=== PATIENT | female | born 1955 | race Caucasian/White ===

== ENCOUNTER → 2016-12-09 | Outpatient (CLI) | payer BC ==
--- NOTE | 2016-12-10 11:07 | MM ---
Reason for exam: screening (asymptomatic). Last mammogram was performed 1 year and 1 month ago. History: Patient is postmenopausal. Family history of breast cancer in daughter at age 37, breast cancer in mother at age 59, and breast cancer in maternal aunt at age 60. Cancelled Left Needle Localization of both breasts, March 19, 2007. Attempted Procedure of the left breast, March 19, 2007. Benign left mammotome panel of the left breast, September 04, 2006. Benign excisional biopsy of the right breast, 1982. Took hormonal contraceptives for 8 years. Physical Findings: A clinical breast exam by your physician is recommended on an annual basis and results should be correlated with mammographic findings. MG 3D Screening Mammo W/Cad Bilateral CC and MLO view(s) were taken. Prior study comparison: November 12, 2015, bilateral MG 3d screening mammo w/cad. November 08, 2014, bilateral MG screening mammo w CAD. The breast tissue is heterogeneously dense. This may lower the sensitivity of mammography. Finding: There is a typically benign 7 mm mass located 3 cm from the nipple in the 3 o'clock position consistent with cyst versus mass. There is a chronic nodularity bilaterally. New finding since November 12, 2015 and November 08, 2014. ASSESSMENT: Incomplete: need additional imaging evaluation, BI-RAD 0 RECOMMENDATION: Ultrasound of the right breast. [facility] will attempt to contact patient to return for ultrasound.
== END | disposition home or self-care (01) ==
LOC: RADMAMWWP 07:33
PROVIDERS: ATTEND Obstetrics & Gynecology
DX: Z12.31 Encounter for screening mammogram for malignant neoplasm of breast (principal); R92.2 Inconclusive mammogram
CPT/HCPCS: 77063; G0202

== ENCOUNTER → 2016-12-12 | Outpatient (CLI) | payer BC ==
--- NOTE | 2016-12-15 07:37 | USB ---
Reason for exam: additional evaluation requested from abnormal screening. History: Patient is postmenopausal. Family history of breast cancer in daughter at age 37, breast cancer in mother at age 59, and breast cancer in maternal aunt at age 60. Cancelled Left Needle Localization of both breasts, March 19, 2007. Attempted Procedure of the left breast, March 19, 2007. Benign left mammotome panel of the left breast, September 04, 2006. Benign excisional biopsy of the right breast, 1982. Took hormonal contraceptives for 8 years. Physical Findings: Nurse Summary: 11 o'clock and 3 o'clock at nipple (nurse kp). US Breast Workup Limited RT Right breast ultrasound demonstrates a 1.1 x 0.6 x 0.4cm cystic lesion at 11 o'clock, a 0.5 x 0.4 x 0.3cm cystic lesion at 11 o'clock, a 0.4 x 0.3 x 0.2cm cystic lesion at 11 o'clock, a 0.4 x 0.3 x 0.2cm cystic lesion at 1 o'clock and a 0.8 x 0.4 x 0.5cm cystic cluster at 3 o'clock. Stable chronic nodularity. These results were verbally communicated with the patient and result sheet given to the patient on 12/12/16. ASSESSMENT: Benign, BI-RAD 2 RECOMMENDATION: Return to routine screening mammogram schedule for both breasts.
== END | disposition home or self-care (01) ==
LOC: RADUSWWP 07:04
PROVIDERS: ATTEND Obstetrics & Gynecology
DX: R92.8 Other abnormal and inconclusive findings on diagnostic imaging of breast (principal)

== ENCOUNTER 2017-10-07 11:04 | Day surgery (SDC) | payer BC ==
[2017-10-05 09:58] VITALS: BMI 31.4
[~2017-10-07 11:04] MED LIST: LACTATED RINGERS 1,000 ML IV SCH; LIDOCAINE 1% 20 ML VIAL (10MG/ML) FOR IV START INTRADERMA PRN
[2017-10-07 12:16] VITALS: TEMP 97
[2017-10-07] MEDS ORDERED: LIDOCAINE 1% INJ 10MG/ML (20 ML MDV) ONE (12:47)
[2017-10-07] MEDS ORDERED: PROPOFOL 10 MG/ML 20 ML VIAL IV ONE (12:47)
--- NOTE | 2017-10-07 13:13 | P.PCN ---
Date of Procedure: 10/07/17 Procedure(s) Performed: BRIEF HISTORY: Patient is a 62-year-old pleasant white female, scheduled for an elective colonoscopy as a part of screening for colon cancer. She has family history of colon cancer diagnosed in her mother at age 40. PROCEDURE PERFORMED: Colonoscopy with snare polypectomy. PREOPERATIVE DIAGNOSIS: Screening for colon cancer/family history of colon cancer. IV sedation per Anesthesia. PROCEDURE: After informed consent was obtained, the patient, was brought into the endoscopy unit. IV sedation was administered by Anesthesia under continuous monitoring. Digital rectal examination was normal. Initially the Olympus CF- 160 flexible video colonoscope was then inserted in the rectum, gradually advanced into the cecum without any difficulty. Careful examination was performed as the scope was gradually being withdrawn. Ileocecal valve and the appendiceal orifice were visualized and appeared normal. Prep was excellent. Mucosa of the cecum, ascending colon, transverse colon, descending colon, sigmoid colon appeared normal. In the proximal rectum at 18 cm from the anal verge there was a 4-5 cm broad-based polyp that was removed by piecemeal snare polypectomy. 90% of the polyp was removed. At this time the base of the polyp was spread over 3-4 cm area and complete polypectomy could not be accomplished. Retroflexion was performed in the rectum and no lesions were seen. The patient tolerated the procedure well. IMPRESSION: 4 cm broad-based proximal rectal polyp status post piecemeal snare polypectomy and 90% of the polyp removed. Rest of the colon appeared normal RECOMMENDATIONS: Findings of this examination were discussed with the patient as well as her family. She will be seen in office in a week from now. Based on the biopsy results will plan on surgical consultation or a repeat flexible sigmoid endoscopic in 3-4 weeks for complete polypectomy.
[2017-10-07 13:23] VITALS: BP 132/80
[2017-10-07 13:42] VITALS: PULSE 56; RESP 16
== END 2017-10-07 13:54 | disposition home or self-care (01) ==
LOC: ORWHC2ENDO 11:04
PROVIDERS: ATTEND Internal Medicine Gastroenterology
DX: Z12.11 Encounter for screening for malignant neoplasm of colon (principal); C20 Malignant neoplasm of rectum; K21.9 Gastro-esophageal reflux disease without esophagitis; Z88.0 Allergy status to penicillin; Z88.5 Allergy status to narcotic agent; Z80.0 Family history of malignant neoplasm of digestive organs
CPT/HCPCS: 88305; 45385; J2001; J2704

== ENCOUNTER → 2017-10-16 | Outpatient (CLI) | payer BC ==
--- NOTE | 2017-10-16 12:01 | CT ---
EXAMINATION TYPE: CT abdomen pelvis w con DATE OF EXAM: 10/16/2017 COMPARISON: NONE HISTORY: Rectal sigmoid colon CA CT DLP: 1613.4 mGycm Automated exposure control for dose reduction was used. TECHNIQUE: Helical acquisition of images from the lung bases through the pelvis have been completed. CONTRAST: Performed with Oral Contrast and with IV Contrast, patient injected with 100 mL of Isovue 300. FINDINGS: There is a soft tissue mass present within the mesentery seen extending just deep to the re ctus muscle on the left on axial images 64 through 57 is somewhat ill-defined. Similar small mass pre sent just deep to the rectus muscle on the right on axial image 57 through 59 is noted. These masses measure only approximately 1 cm in thickness, possible small areas just deep to the rectus muscle on the right on axial image 50 with abnormal soft tissue present as on axial image 45 in the midline emmanuel p to the abdominal wall. LUNG BASES: No significant abnormality is appreciated. AORTA: No significant abnormality is appreciated. LIVER/GB: Patient is post cholecystectomy. No evident liver mass. Liver shows low attenuation possibl y due to hepatic steatosis.. PANCREAS: No significant abnormality is seen. SPLEEN: No significant abnormality is seen. ADRENALS: No significant abnormality is seen. KIDNEYS: No significant abnormality is seen. REPRODUCTIVE ORGANS: The uterus is thought to be enlarged and shows associated lobular contour and pa renchymal calcifications, the probable uterus measuring approximately 17 cm in AP dimension by 11 cm x 10 cm in dimension. Ovaries are not seen with certainty. BOWEL: Some thickening of the rectosigmoid colon is indeterminate. This may correspond to patient's history, underlying tumor.. FREE AIR: No Free Air visible. ASCITES: Small amount of ascites present about the liver. PELVIC ADENOPATHY: None visualized. RETROPERITONEAL ADENOPATHY: No Retroperitoneal Adenopathy visible. URINARY BLADDER: No significant abnormality is seen. OSSEOUS STRUCTURES: Degenerative disc disease noted in the lower lumbar spine. IMPRESSION: FINDINGS COMPATIBLE WITH PATIENT'S HISTORY OF RECTOSIGMOID CARCINOMA. FINDINGS SUSPICIOUS FOR METASTA TIC DISEASE, OMENTAL METASTASIS. Large fibroid uterus, additional findings above.
== END | disposition home or self-care (01) ==
LOC: RADCTMAIN 09:43
PROVIDERS: ATTEND Internal Medicine Gastroenterology
DX: C19 Malignant neoplasm of rectosigmoid junction (principal); D25.9 Leiomyoma of uterus, unspecified
CPT/HCPCS: 74177; Q9967

== ENCOUNTER → 2017-10-22 | Day surgery (SDC) | payer BC ==
[~2017-10-22] MED LIST changes: +HYDROcodone/APAP 5-325MG 1 EACH TAB PO PRN; -LACTATED RINGERS 1,000 ML IV SCH; -LIDOCAINE 1% 20 ML VIAL (10MG/ML) FOR IV START INTRADERMA PRN; +MORPHINE SULFATE 4 MG/ML SYRINGE IVP PRN
[2017-10-22 08:38] LABS: Mean Platelet Volume 7.9; Platelet Count 283 k/uL (150-450)
[2017-10-22 08:42] LABS: INR 1.1 (<1.2); Prothrombin Time 10.5 sec (9.0-12.0)
[2017-10-22 08:54] VITALS: RESP 18; TEMP 98
[2017-10-22 13:50] VITALS: BP 128/68; PULSE 68
--- NOTE | 2017-10-23 10:28 | CT ---
EXAMINATION TYPE: CT biopsy subcut tissue DATE OF EXAM: 10/22/2017 HISTORY: Omental caking with history of colon carcinoma/polypectomy, hysterectomy, and new complex pe lvic mass. COMPARISON: 10/16/2017 TECHNIQUE: Informed consent was obtained including the risks of bowel perforation and infection, olegario austin. Preprocedural timeout was performed. Sterile technique was utilized. The skin overlying a suitable path to the lesion was localized using CT and the overlying skin was prepped and draped. 15 cc of lidocaine was used for local anesthesia. Using CT guidance, access was gained to the lesion with a coaxial Temno biopsy device. 7 biopsies wer e performed in all. Following the procedure no immediate complications. Postprocedural imaging at 2 separate time points demonstrates only minimal air surrounding the biopsy site introduced by the lido beatrice and biopsy needle. The patient is discharged in stable condition. Hemostasis was achieved. IMPRESSION: SUCCESSFUL CT GUIDED OMENTAL BIOPSY. PATHOLOGY PENDING. THIS [facility]ED[facility].
== END ==
LOC: RADPROMAIN 07:40
PROVIDERS: ATTEND Internal Medicine Hematology & Oncology
DX: C20 Malignant neoplasm of rectum (principal)
CPT/HCPCS: 88305; 85049; 85610; 88342; 88341; 96375; 36415; 77012; 11100; J2270

== ENCOUNTER → 2017-12-10 | Outpatient (CLI) | payer BC ==
--- NOTE | 2017-12-10 11:34 | MM ---
Reason for exam: screening (asymptomatic). Last mammogram was performed 1 year ago. History: Patient is postmenopausal and history of other cancer. Family history of breast cancer in daughter at age 37, breast cancer in mother at age 59, and breast cancer in maternal aunt at age 60. Cancelled Left Needle Localization of both breasts, March 19, 2007. Attempted Procedure of the left breast, March 19, 2007. Benign left mammotome panel of the left breast, September 04, 2006. Benign excisional biopsy of the right breast, 1982. Took hormonal contraceptives for 8 years. Physical Findings: A clinical breast exam by your physician is recommended on an annual basis and results should be correlated with mammographic findings. MG 3D Screening Mammo W/Cad Bilateral CC and MLO view(s) were taken. Technologist: RT Reagan (R)(M) Prior study comparison: December 09, 2016, bilateral MG 3d screening mammo w/cad. November 12, 2015, bilateral MG 3d screening mammo w/cad. The breast tissue is heterogeneously dense. This may lower the sensitivity of mammography. Previous mammotome biopsy in the left breast. There is chronic nodularity bilaterally. New nodules bilaterally varying locations and sizes. ASSESSMENT: Incomplete: need additional imaging evaluation, BI-RAD 0 RECOMMENDATION: Ultrasound of both breasts.
--- NOTE | 2017-12-10 11:38 | USB ---
Reason for exam: additional evaluation requested from abnormal screening. History: Patient is postmenopausal and history of other cancer. Family history of breast cancer in daughter at age 37, breast cancer in mother at age 59, and breast cancer in maternal aunt at age 60. Cancelled Left Needle Localization of both breasts, March 19, 2007. Attempted Procedure of the left breast, March 19, 2007. Benign left mammotome panel of the left breast, September 04, 2006. Benign excisional biopsy of the right breast, 1982. Took hormonal contraceptives for 8 years. Physical Findings: Nurse Summary: bilateral nodularity, all soft, nodular, movable (nurse ts). US Breast Workup NADER Right complete breast ultrasound includes all four quadrants, the retroareolar region and axilla. Finding demonstrates a 0.7 x 0.3 x 0.5cm mixed lesion at 12 o'clock, a 0.7 x 0.4 x 0.7cm mixed lesion at 4 o'clock, a 0.5 x 0.3 x 0.6cm questionable node at 9 o'clock, a 0.7 x 0.7 x 0.8cm mixed lesion at 11:30 and a 0.9 x 0.6 x 0.4cm node at the axilla. Suspect overall fibrocystic change. Left complete breast ultrasound includes all four quadrants, the retroareolar region and axilla. Finding demonstrates a 0.7 x 0.4 x 0.7cm cystic lesion at 3 o'clock, a 0.7 x 0.5 x 0.7cm mixed lesion at 9 o'clock, a 0.7 x 0.5 x 0.05cm lipoma at 9 o'clock and a 1.0 x 0.5 x 1.1cm cystic lesion at the nipple. These results were verbally communicated with the patient and result sheet given to the patient on 12/10/17. ASSESSMENT: Probably benign, BI-RAD 3 RECOMMENDATION: Follow-up diagnostic mammogram of both breasts in 6 months.
== END | disposition home or self-care (01) ==
LOC: RADMAMWWP 07:04
PROVIDERS: ATTEND Obstetrics & Gynecology
DX: Z12.31 Encounter for screening mammogram for malignant neoplasm of breast (principal); R92.8 Other abnormal and inconclusive findings on diagnostic imaging of breast; Z80.3 Family history of malignant neoplasm of breast
CPT/HCPCS: 77063; 77067

== ENCOUNTER → 2017-12-11 | Day surgery (SDC) | payer BC ==
[2017-12-04 12:57] VITALS: BMI 27.9
[~2017-12-11] MED LIST changes: +DEXAMETHASONE SOD PHOSPHATE 10 MG/ML 1 ML VIAL IV ONE; +HEPARIN SODIUM,PORCINE 100 UNIT/ML 5 ML VIAL IV ONE; +HEPARIN SODIUM,PORCINE 5,000 UNIT/ML 1 ML VIAL SQ ONE; +KETAMINE 10 MG/ML 20 ML VIAL ONE; +LIDOCAINE 1% 20 ML VIAL (10MG/ML) FOR IV START INTRADERMA ONE; +LIDOCAINE 1% INJ 10MG/ML (20 ML MDV) SQ ONE; +MIDAZOLAM 2 MG/2 ML VIAL IV PRN; +MIDAZOLAM 2 MG/2 ML VIAL ONE; -MORPHINE SULFATE 4 MG/ML SYRINGE IVP PRN; +NALOXONE 0.4 MG/ML 1 ML VIAL IV PRN; +ONDANSETRON 4 MG/2 ML VIAL IVP ONE; +PROPOFOL 10 MG/ML 20 ML VIAL IV ONE; +Pre Op ABX Message 1 EACH MISC MISCELLANE ONE; +SCOPOLAMINE 1.5MG/72HR PATCH TRANSDERM ONE; +SODIUM CHLORIDE 0.9% 50 ML with ceFAZolin 2,000 MG IV ONE; +diphenhydrAMINE 50 MG/ML 1 ML VIAL ONE; +fentaNYL (PF) 50 MCG/ML 2 ML AMP IV PRN
[2017-12-11 06:50] VITALS: RESP 16; TEMP 96.4
[2017-12-11] MEDS: LACTATED RINGERS 1,000 ML IV SCH ×2 (07:11→07:42)
--- NOTE | 2017-12-11 07:40 | P.GSHP ---
History of Present Illness H&P Date: 12/11/17 Chief Complaint: Ovarian cancer Patient here today for Port-A-Cath placement. Recent diagnosis of ovarian and circumflex. Underwent recent surgical debulking and colectomy. She is to start chemotherapy this Thursday. Past Medical History Past Medical History: Cancer, GERD/Reflux, Pneumonia Additional Past Medical History / Comment(s): OSTEOPENIA, recent diagnosis of colon ca 10/2017, OVARIAN CANCER History of Any Multi-Drug Resistant Organisms: None Reported Past Surgical History: Adenoidectomy, Appendectomy, Bowel Resection, Cholecystectomy, Hysterectomy, Orthopedic Surgery, Tonsillectomy Additional Past Surgical History / Comment(s): D&C'S. RIGHT KNEE ARTHROSCOPY, colonoscopy. COLON RESECTION AND RIGHT AND LEFT OOPHERECTOMY ,OMENTUM REMOVED AND FALLOPIAN TUBES Past Anesthesia/Blood Transfusion Reactions: Postoperative Nausea & Vomiting ( PONV) Smoking Status: Never smoker - Past Family History Mother Family Medical History: Cancer Additional Family Medical History / Comment(s): age 37 - colon cancer, BREAST CANCER AGE 59 LIVER AND BRAIN CANCER Daughter(s) Family Medical History: Cancer Additional Family Medical History / Comment(s): BREAST CANCER Medications and Allergies Home Medications Medication Instructions Recorded Confirmed Type Cholecalciferol (Vitamin D3) 2,000 unit PO DAILY 10/05/17 12/11/17 History [Vitamin D3] ALPRAZolam [Xanax] 0.5 mg PO BID PRN 10/19/17 12/11/17 History Allergies Allergy/AdvReac Type Severity Reaction Status Date / Time etodolac Allergy Rash/Hives Verified 12/11/17 06:42 Penicillins Allergy Rash/Hives Verified 12/11/17 06:42 Surgical - Exam Vital Signs Temp Pulse Resp BP Pulse Ox 96.4 F L 74 16 133/75 98 12/11/17 06:49 12/11/17 06:49 12/11/17 06:49 12/11/17 06:49 12/11/17 06:49 Physical exam: General: Well-developed, well-nourished HEENT: Normocephalic, sclerae nonicteric Abdomen: Nontender, nondistended Extremities: No edema Neuro: Alert and oriented Assessment and Plan (1) Ovarian cancer Narrative/Plan: Will proceed with Port-A-Cath placement at this time. Risks of bleeding, infection, DVT, pneumothorax, catheter malfunction, anesthesia related complications were discussed. The patient understands and wishes to proceed. Current Visit: Yes Status: Acute Code(s): C56.9 - MALIGNANT NEOPLASM OF UNSPECIFIED OVARY SNOMED Code(s): 576722612
[2017-12-11 08:55] VITALS: PULSE 63
[2017-12-11 08:56] VITALS: BP 123/75
--- NOTE | 2017-12-11 08:57 | XR ---
EXAMINATION TYPE: XR chest 1V confirm line plcmt, FL guided central line placemt DATE OF EXAM: 12/11/2017 COMPARISON: NONE HISTORY: Status post Mediport insertion. TECHNIQUE: Single frontal view of the chest is obtained. FINDINGS: Right-sided Mediport has been placed with its distal tip terminating in the cavoatrial laurence ction, appropriately placed. There is no focal air space opacity, pleural effusion, or pneumothorax s een. The cardiac silhouette size is within normal limits. The osseous structures are intact. Annie cystectomy clips are noted within the right upper quadrant. Fluoroscopic guidance was provided during procedure performed by Dr. Dorantes. A total of 8 seconds of fluoroscopic time was utilized during the procedure and 1 spot images was acquired. IMPRESSION: Appropriately placed right-sided Mediport with no postprocedural pneumothorax.
--- NOTE | 2017-12-11 08:58 | P.OP ---
Date of Procedure: 12/11/17 Procedure(s) Performed: PREOPERATIVE DIAGNOSIS: Ovarian cancer POSTOPERATIVE DIAGNOSIS: Same PROCEDURE: Port-A-Cath placement SURGEON: Jayna EBL: Minimal ANESTHESIA: Sedation COMPLICATIONS: None OPERATIVE PROCEDURE: Patient was brought and placed on the operative table in the supine position. The patient was sedated per anesthesia that time. The chest and neck were prepped and draped in usual sterile fashion. The ultrasound probe was used to identify the location of the right internal jugular vein. The skin was localized with lidocaine. The Seldinger needle was advanced into the IJ under ultrasound guidance. The wire was advanced through the needle under fluoroscopic guidance into the superior vena cava. A port pocket was created in the right infraclavicular location. The catheter was tunneled from the wire entrance site to the port pocket. The port was then connected to the catheter. The dilator introducer was threaded over the guidewire. The guidewire and dilator were then removed. The catheter was advanced through the introducer and introducer was then removed. The tip was seen to be in the right atrial junction. Port was flushed with both saline and a Hep-Lock solution. There was good flow both in and out of the port. The port was sutured in underlying tissues using 3-0 silk sutures. The subcutaneous tissues were reapproximated using 3-0 Vicryl sutures and the skin at both locations using 4-0 Monocryl sutures. Steri-Strips and sterile dressings then applied. DISPOSITION: Stable to recovery room
== END | disposition home or self-care (01) ==
LOC: OR 06:10
PROVIDERS: ATTEND Surgery
DX: C56.1 Malignant neoplasm of right ovary (principal); Z90.722 Acquired absence of ovaries, bilateral; C20 Malignant neoplasm of rectum; Z90.49 Acquired absence of other specified parts of digestive tract; Z80.3 Family history of malignant neoplasm of breast; Z80.0 Family history of malignant neoplasm of digestive organs; K21.9 Gastro-esophageal reflux disease without esophagitis; M85.80 Other specified disorders of bone density and structure, unspecified site; Z88.6 Allergy status to analgesic agent; Z88.0 Allergy status to penicillin
CPT/HCPCS: 77001; 36561; 76937; C1788; J2250; J1200; J1644; J1642; J1100; J2405; J2001; J0690; J2704

== ENCOUNTER 2018-02-21 08:49 | Emergency (ER) | payer BC ==
[2018-02-21] MEDS ORDERED: SODIUM CHLORIDE 0.9% 500 ML 500 ML IV STA (09:15)
[2018-02-21] MEDS ORDERED: LIDOCAINE/EPINEPHR/TETRACAINE 5 ML BOTTLE TOPICAL ONE (09:17)
[2018-02-21] MEDS ORDERED: DIPH,PERTUS(ACELL)TETVAC-LF 0.5 ML VIAL IM ONE (09:30)
--- NOTE | 2018-02-21 09:40 | ED ---
General Adult HPI - General Chief complaint: Fall Stated complaint: Syncope Time Seen by Provider: 02/21/18 09:00 Source: patient, RN notes reviewed Mode of arrival: wheelchair Limitations: no limitations - History of Present Illness Initial comments: 62-year-old female presents emergency Department with chief complaint of syncopal episode. Patient is here with family. Patient states that she sat up quickly in her bed states that she normally has to get her bearings but states that she had to urinate so she immediately got up started walking when approximately 10 feet felt very dizzy told her family that she felt dizzy and then blacked out. Patient fell directly onto the tile floor. Patient struck her left knee, face. She did have some mild bleeding from the right nostril.. Patient also has a laceration to her right eyebrow region. She is unsure when her last tetanus was. Patient does complain of right-sided facial pain, right shoulder, left knee pain. Patient states that there was no loss of consciousness during the fall. Patient denies any neck, back pain no abdominal pain or any chest discomfort. Patient states that she does have ongoing weakness secondary to chemotherapy. She is on wrong for chemotherapy secondary to ovarian cancer. She did have a mass removed from her colon, uterine and ovarian region. Patient states her oncologist is Dr. Humphrey - Related Data Home Medications Medication Instructions Recorded Confirmed Cholecalciferol (Vitamin D3) 2,000 unit PO DAILY 10/05/17 12/11/17 [Vitamin D3] ALPRAZolam [Xanax] 0.5 mg PO BID PRN 10/19/17 12/11/17 Previous Rx's Medication Instructions Recorded Sulfamethox-Tmp 800-160Mg [Bactrim 1 each PO Q12HR #14 tab 02/21/18 Ds] Allergies Allergy/AdvReac Type Severity Reaction Status Date / Time etodolac Allergy Rash/Hives Verified 12/11/17 06:42 Penicillins Allergy Rash/Hives Verified 12/11/17 06:42 Review of Systems ROS Statement: Those systems with pertinent positive or pertinent negative responses have been documented in the HPI. ROS Other: All systems not noted in ROS Statement are negative. Past Medical History Past Medical History: Cancer Additional Past Medical History / Comment(s): OSTEOPENIA, recent diagnosis of colon ca 10/2017, Ovarian Cancer History of Any Multi-Drug Resistant Organisms: None Reported Past Surgical History: Adenoidectomy, Appendectomy, Cholecystectomy, Hysterectomy, Orthopedic Surgery, Tonsillectomy Additional Past Surgical History / Comment(s): D&C'S. RIGHT KNEE ARTHROSCOPY, colonoscopy. abdominal lesion being investigated with biopsy 10/2017, Mass removal, 10.7 Inches of Colon Removed 11/12/2017 Past Anesthesia/Blood Transfusion Reactions: Postoperative Nausea & Vomiting ( PONV) Past Psychological History: No Psychological Hx Reported Additional Psychological History / Comment(s): anxiety health related Smoking Status: Never smoker Past Alcohol Use History: None Reported Past Drug Use History: None Reported - Past Family History Mother Family Medical History: Cancer Additional Family Medical History / Comment(s): age 37 - colon cancer, BREAST CANCER AGE 59 LIVER AND BRAIN CANCER Daughter(s) Family Medical History: Cancer Additional Family Medical History / Comment(s): BREAST CANCER General Exam Limitations: no limitations General appearance: alert, in no apparent distress Head exam: Present: atraumatic, normocephalic, normal inspection Eye exam: Present: normal appearance, PERRL, EOMI, periorbital swelling (Mild right), periorbital tenderness (Mild to moderate right with 3 cm-laceration). Absent: scleral icterus, conjunctival injection ENT exam: Present: normal oropharynx, mucous membranes moist, TM's normal bilaterally, normal external ear exam. Absent: normal exam (Superficial laceration to the right lower, no obvious dentition injury patient does have tenderness with palpation of the right side of the mandible.) Neck exam: Present: normal inspection, full ROM. Absent: tenderness, meningismus, lymphadenopathy Respiratory exam: Present: normal lung sounds bilaterally. Absent: respiratory distress, wheezes, rales, rhonchi, stridor Cardiovascular Exam: Present: regular rate, normal rhythm, normal heart sounds. Absent: systolic murmur, diastolic murmur, rubs, gallop, clicks GI/Abdominal exam: Present: soft, normal bowel sounds. Absent: distended, tenderness, guarding, rebound, rigid Extremities exam: Present: other (Full range of motion to the right shoulder with moderate tenderness with palpation, neurovascular intact, left knee swollen and ecchymotic for range of motion but tender with palpation leg neurovascular intact extremity exam otherwise within normal limits.) Back exam: Present: full ROM. Absent: tenderness, paraspinal tenderness, vertebral tenderness Neurological exam: Present: alert, oriented X3, CN II-XII intact, reflexes normal, other. Absent: motor sensory deficit Skin exam: Present: warm, dry, intact, normal color. Absent: rash Course Vital Signs 02/21/18 02/21/18 02/21/18 08:50 09:22 09:30 Temperature 98.3 F Pulse Rate 87 Pulse Rate [ Sitting] Pulse Rate [ Supine] Respiratory 18 24 Rate Blood Pressure 117/82 167/101 Blood Pressure [Sitting] Blood Pressure [Supine] O2 Sat by Pulse 98 100 99 Oximetry 02/21/18 02/21/18 02/21/18 11:00 11:30 12:00 Temperature Pulse Rate 69 68 70 Pulse Rate [ Sitting] Pulse Rate [ Supine] Respiratory 12 18 18 Rate Blood Pressure 145/90 147/88 146/88 Blood Pressure [Sitting] Blood Pressure [Supine] O2 Sat by Pulse 100 100 Oximetry 02/21/18 02/21/18 12:30 12:50 Temperature Pulse Rate 75 Pulse Rate [ 100 Sitting] Pulse Rate [ 69 Supine] Respiratory 15 Rate Blood Pressure 141/98 Blood Pressure 108/76 [Sitting] Blood Pressure 146/81 [Supine] O2 Sat by Pulse 100 Oximetry - Reevaluation(s) Reevaluation #1: 02/21/18 09:40 Patient was offered pain medication and evaluation though she declined. Procedures - Laceration Laceration #1 Consent Obtained: verbal consent Time Out Performed: Yes Site: face Size (cm): 3 Description: linear Depth: simple, single layer Number of Sutures: 0 (exofin) Patient Tolerated Procedure: well, no complications Medical Decision Making - Medical Decision Making 62-year-old female presented to ER for syncopal episode. Patient had CT, x- rays and lab. Patient is found to have fracture of her right maxilla, right somatic arch. Otherwise imaging was reviewed in no acute abnormality's. Patient is mildly orthostatic. Patient was offered admission though she declines. Patient and family agree that she is stable for home. We discussed return parameters. Patient has follow-up tomorrow with her oncologist. Patient will increase her fluid intake will be discharged on antibiotics secondary to fractures and follow-up with Dr. Paulson as she seen in the past. - Lab Data Result diagrams: 02/21/18 10:43 02/21/18 10:43 Lab Results 02/21/18 02/21/18 02/21/18 Range/Units 10:43 10:43 10:43 WBC 3.9 (3.8-10.6) k/uL RBC 3.92 (3.80-5.40) m/uL Hgb 10.9 L (11.4-16.0) gm/dL Hct 34.6 (34.0-46.0) % MCV 88.3 (80.0-100.0) fL MCH 27.9 (25.0-35.0) pg MCHC 31.6 (31.0-37.0) g/dL RDW 16.6 H (11.5-15.5) % Plt Count 99 L (150-450) k/uL Neutrophils % 70 % Lymphocytes % 27 % Monocytes % 1 % Eosinophils % 0 % Basophils % 0 % Neutrophils # 2.8 (1.3-7.7) k/uL Lymphocytes # 1.1 (1.0-4.8) k/uL Monocytes # 0.1 (0-1.0) k/uL Eosinophils # 0.0 (0-0.7) k/uL Basophils # 0.0 (0-0.2) k/uL Anisocytosis Slight PT (9.0-12.0) sec INR (<1.2) APTT (22.0-30.0) sec Sodium 139 (137-145) mmol/L Potassium 4.3 (3.5-5.1) mmol/L Chloride 107 (98-107) mmol/L Carbon Dioxide 24 (22-30) mmol/L Anion Gap 8 mmol/L BUN 21 H (7-17) mg/dL Creatinine 0.51 L (0.52-1.04) mg/dL Est GFR (CKD-EPI)AfAm >90 (>60 ml/min/1.73 sqM) Est GFR (CKD-EPI)NonAf >90 (>60 ml/min/1.73 sqM) Glucose 123 H (74-99) mg/dL Calcium 9.5 (8.4-10.2) mg/dL Magnesium 1.7 (1.6-2.3) mg/dL Total Bilirubin 0.4 (0.2-1.3) mg/dL AST 27 (14-36) U/L ALT 32 (9-52) U/L Alkaline Phosphatase 68 (38-126) U/L Total Creatine Kinase 36 (30-135) U/L CK-MB (CK-2) 0.6 (0.0-2.4) ng/mL CK-MB (CK-2) Rel Index 1.7 Troponin I <0.012 (0.000-0.034) ng/mL Total Protein 7.0 (6.3-8.2) g/dL Albumin 3.7 (3.5-5.0) g/dL 02/21/18 Range/Units 10:43 WBC (3.8-10.6) k/uL RBC (3.80-5.40) m/uL Hgb (11.4-16.0) gm/dL Hct (34.0-46.0) % MCV (80.0-100.0) fL MCH (25.0-35.0) pg MCHC (31.0-37.0) g/dL RDW (11.5-15.5) % Plt Count (150-450) k/uL Neutrophils % % Lymphocytes % % Monocytes % % Eosinophils % % Basophils % % Neutrophils # (1.3-7.7) k/uL Lymphocytes # (1.0-4.8) k/uL Monocytes # (0-1.0) k/uL Eosinophils # (0-0.7) k/uL Basophils # (0-0.2) k/uL Anisocytosis PT 9.8 (9.0-12.0) sec INR 1.0 (<1.2) APTT 23.9 (22.0-30.0) sec Sodium (137-145) mmol/L Potassium (3.5-5.1) mmol/L Chloride (98-107) mmol/L Carbon Dioxide (22-30) mmol/L Anion Gap mmol/L BUN (7-17) mg/dL Creatinine (0.52-1.04) mg/dL Est GFR (CKD-EPI)AfAm (>60 ml/min/1.73 sqM) Est GFR (CKD-EPI)NonAf (>60 ml/min/1.73 sqM) Glucose (74-99) mg/dL Calcium (8.4-10.2) mg/dL Magnesium (1.6-2.3) mg/dL Total Bilirubin (0.2-1.3) mg/dL AST (14-36) U/L ALT (9-52) U/L Alkaline Phosphatase (38-126) U/L Total Creatine Kinase (30-135) U/L CK-MB (CK-2) (0.0-2.4) ng/mL CK-MB (CK-2) Rel Index Troponin I (0.000-0.034) ng/mL Total Protein (6.3-8.2) g/dL Albumin (3.5-5.0) g/dL Disposition Clinical Impression: Fall, Syncope, Maxillary fracture, Zygomatic arch fracture, Contusion of knee, right, Orthostatic dizziness Disposition: HOME SELF-CARE Condition: Stable Instructions: Syncope (ED) Additional Instructions: Please return to the Emergency Department if symptoms worsen or any other concerns. Prescriptions: Sulfamethox-Tmp 800-160Mg [Bactrim Ds] 1 each PO Q12HR #14 tab Is patient prescribed a controlled substance at d/c from ED?: No Referrals: Jake Gutierrez MD [Primary Care Provider] - 1-2 days Hay Rosas MD [STAFF PHYSICIAN] - 1-2 days Time of Disposition: 12:58
[2018-02-21] MEDS ORDERED: ETHYL CHLORIDE 103.5 ML SPRAY TOPICAL PRN (09:46)
--- NOTE | 2018-02-21 10:27 | XR ---
EXAMINATION TYPE: XR chest 1V DATE OF EXAM: 02/21/2018 HISTORY: Pain. REFERENCE: Previous study dated 12/11/2017. FINDINGS: There is a MediPort in place via a right internal jugular approach. Its tip is in the super ior vena cava at the cavoatrial junction. The lungs are clear. Pleural space are clear. The heart is not enlarged. IMPRESSION: NO ACUTE INTRATHORACIC ABNORMALITY.
--- NOTE | 2018-02-21 10:27 | XR ---
EXAMINATION TYPE: XR shoulder complete RT , 3 VIEWS DATE OF EXAM ORDERED: 02/21/2018 HISTORY: Pain. COMPARISON: None. FINDINGS: No fracture, dislocation or other acute osseous abnormality is seen. IMPRESSION: NO ACUTE OSSEOUS LESION.
--- NOTE | 2018-02-21 10:28 | XR ---
EXAMINATION TYPE: XR knee complete LT , 3 VIEWS DATE OF EXAM ORDERED: 02/21/2018 HISTORY: Pain. COMPARISON: None. FINDINGS: There is peaking of intercondylar spines. There is medial joint space loss. There is remod eling change in the medial compartment as well as the patellofemoral joint. There is a prominent knee joint effusion. No fracture is seen. IMPRESSION: 1. NO ACUTE OSSEOUS LESION. 2. OSTEOARTHRITIS. 3. LARGE KNEE JOINT EFFUSION.
--- NOTE | 2018-02-21 10:45 | CT ---
EXAMINATION TYPE: CT brain cspine wo con DATE OF EXAM: 02/21/2018 COMPARISON: NONE HISTORY: Syncope, open wound above Rt eye, jaw pain CT DLP: 1536.1 mGycm Automated exposure control for dose reduction was used. TECHNIQUE: CT scan of the head and cervical spine are performed without contrast. FINDINGS: BRAIN: Central structures are midline. There is no evidence of hydrocephalus. No acute focal lesion, mass effect or midline shift is seen. I do not see evidence of intracranial blood. There is a dressin g over the right eye. The orbit itself appears unremarkable. Visualized portions of the paranasal sinuses and mastoids are clear. The bony calvarium is intact. IMPRESSION: NO ACUTE INTRACRANIAL ABNORMALITY. CERVICAL SPINE: Visualized portions of the lungs are clear. There is effacement of the parapharyngeal soft tissues on the right. This may be overlying debris. Pa raspinal soft tissues are otherwise unremarkable. There is loss of the normal cervical lordosis. Alignment appears normal. Atlantoaxial relationships a re normal. There is disc space loss and hypertrophic spondylosis present at C5-6 and C6-7. There are uncovertebral joint changes at these levels as well. The facets are unremarkable. No definite protrus ion is seen. No fracture is seen. IMPRESSION: 1. NO ACUTE OSSEOUS LESION. 2. DEGENERATIVE CHANGE. 3. EFFACEMENT OF THE PARAPHARYNGEAL SOFT TISSUES ON THE RIGHT. DIRECT VISUALIZATION AT THIS AREA WOUL D BE SUGGESTED.
--- NOTE | 2018-02-21 10:51 | CT ---
EXAMINATION TYPE: CT facial bones wo con DATE OF EXAM: 02/21/2018 COMPARISON: None. HISTORY: Syncope, open wound above Rt eye, jaw pain CT DLP: 1536.1 mGycm Automated exposure control for dose reduction was used. TECHNIQUE: CT scan of the sinuses is performed without contrast, axial images are obtained, coronal r eformatted images are also reviewed. FINDINGS: There is a laceration over the right orbit. The orbit itself is unremarkable. The globe is intact. There are fractures of both the anterior and lateral valle of the right maxillary sinus. The sinuses filled with fluid, likely represent partially clotted blood. The medial wall appears intact. The infe rior wall of the orbit is also dilated. There is no muscular entrapment. There is a minimally displaced fracture of the right zygomatic arch. The left zygomatic arch is intac t. Both pterygoid plates are intact. No nasal fracture is identified. The mandible is intact. IMPRESSION: 1. VIOLATION OF BOTH THE LATERAL AND ANTERIOR VALLE OF THE MAXILLARY SINUS WELL THE INFERIOR WA LL OF THE ORBIT WITHOUT EVIDENCE OF ENTRAPMENT BUT WITH BLOOD WITHIN THE MAXILLARY SINUS. 2. MINIMALLY DISPLACED FRACTURE AND PORTION OF THE RIGHT ZYGOMATIC ARCH.
[2018-02-21 11:27] LABS: Anisocytosis Slight; Basophils % (A) 0 %; Eosinophils % (A) 0 %; HCT 34.6 % (34.0-46.0); HGB 10.9 gm/dL (11.4-16.0); Lymphocytes # (A) 1.1 k/uL (1.0-4.8); Lymphocytes % (A) 27 %; MCH 27.9 pg (25.0-35.0); MCHC 31.6 g/dL (31.0-37.0); MCV 88.3 fL (80.0-100.0); Mean Platelet Volume 7.5; Monocytes # (A) 0.1 k/uL (0-1.0); Monocytes % (A) 1 %; Neutrophils # (A) 2.8 k/uL (1.3-7.7); Neutrophils % (A) 70 %; RBC 3.92 m/uL (3.80-5.40); RDW 16.6 % (11.5-15.5); WBC 3.9 k/uL (3.8-10.6)
[2018-02-21 11:35] LABS: ALT 32 U/L (9-52); AST 27 U/L (14-36); Albumin 3.7 g/dL (3.5-5.0); Alkaline Phosphatase 68 U/L (38-126); Anion Gap 8 mmol/L; Blood Urea Nitrogen 21 mg/dL (7-17); Calcium 9.5 mg/dL (8.4-10.2); Carbon Dioxide 24 mmol/L (22-30); Chloride 107 mmol/L (98-107); Glucose 123 mg/dL (74-99); Magnesium 1.7 mg/dL (1.6-2.3); Potassium 4.3 mmol/L (3.5-5.1); Sodium 139 mmol/L (137-145); Total Bilirubin 0.4 mg/dL (0.2-1.3)
[2018-02-21 11:39] LABS: Partial Thromboplastin Time 23.9 sec (22.0-30.0); Prothrombin Time 9.8 sec (9.0-12.0)
[2018-02-21 11:51] LABS: Platelet Count 99 k/uL (150-450)
[2018-02-21 11:53] LABS: Creatine Kinase 36 U/L (30-135)
[2018-02-21 12:06] LABS: Creatine Kinase MB 0.6 ng/mL (0.0-2.4); Troponin I <0.012 ng/mL (0.000-0.034)
[2018-02-21] MEDS ORDERED: TOPICAL SKIN ADHESIVE 1 EACH AMP TOPICAL ONE (12:41)
[2018-02-21 13:37] VITALS: BP 135/89; PULSE 79; RESP 18; TEMP 98
== END 2018-02-21 14:21 | disposition home or self-care (01) ==
LOC: EC 08:49
DX: S02.40CA Maxillary fracture, right side, initial encounter for closed fracture (principal); S02.40EA Zygomatic fracture, right side, initial encounter for closed fracture; S80.01XA Contusion of right knee, initial encounter; S80.02XA Contusion of left knee, initial encounter; S01.111A Laceration without foreign body of right eyelid and periocular area, initial encounter; M25.511 Pain in right shoulder; Z85.43 Personal history of malignant neoplasm of ovary; Z85.038 Personal history of other malignant neoplasm of large intestine; Z88.6 Allergy status to analgesic agent; Z88.0 Allergy status to penicillin; R55 Syncope and collapse; Z23 Encounter for immunization; Z53.29 Procedure and treatment not carried out because of patient's decision for other reasons; W19.XXXA Unspecified fall, initial encounter; Y93.01 Activity, walking, marching and hiking; Y92.009 Unspecified place in unspecified non-institutional (private) residence as the place of occurrence of the external cause
CPT/HCPCS: 36415; 93005; 80053; 82550; 82553; 83735; 84484; 85025; 85610; 85730; 73030; 73562; 71045; 72125; 70486; 70450; 90715; 99284; 12013; 96374; 96361; 90471; J1642

== ENCOUNTER → 2018-05-17 | Outpatient (CLI) | payer BC ==
--- NOTE | 2018-05-17 16:18 | CT ---
EXAMINATION TYPE: CT ChestAbdPelvis w con DATE OF EXAM: 05/17/2018 COMPARISON: 10/16/2017 HISTORY: 62-year-old female follow up for ovarian and rectal cancer. TECHNIQUE: Contiguous axial scanning of the chest, abdomen, and pelvis performed with IV Contrast, pa tient injected with 100ml mL of Isovue 300. Delayed images through the kidneys were obtained. Coronal /sagittal reconstructions performed. CT DLP: 1878 mGycm Automated exposure control for dose reduction was used. FINDINGS: Chest: Right anterior chest wall injection port with catheter tip at the cavoatrial junction. Heart normal size without pericardial effusion. Aorta normal caliber with mild atherosclerotic arch calcifications and conventional arch vessel branc lary anatomy. Mildly enlarged caliber to the main right pulmonary artery 2.7 cm may reflect underlying pulmonary ar terial hypertension. No thoracic lymphadenopathy by CT size criteria. Evaluation of the lungs shows no consolidation or pleural effusion or suspicious nodules. ABDOMEN: Liver enlarged measuring 19.4 cm. No focal liver lesion seen. Portal venous system is patent. Cholecy stectomy clips. No biliary ductal dilatation. Adrenal glands, kidneys, spleen, and pancreas appear wi thin normal limits. No dilated small bowel, free fluid, or free air. There is some focal 7 mm nodularity along the right pericaval region, axial image 87 which is nonspecific. Scattered nonenlarged mesenteric lymph nodes i n the right lower quadrant just adjacent measure up to 5 mm. Post surgical changes along the midline anterior abdominal wall. There is some focal soft tissue thic kening just deep to the midline abdominal wall musculature, progressive axial image 96 and 97 which c ould represent postsurgical scar but can be reassessed at follow-up. A couple surgical clips noted along the left retroperitoneum. Moderate stool in the right side of the colon with oral contrast progressed to the proximal transvers e colon. No pericolonic inflammatory change. Pelvis: Bladder urine distended. Uterus resected in the interval. There is evidence of resection and re-anast omosis at the rectosigmoid junction. Phlebolith in the left side of the pelvis. No abnormal fluid col lection in the pelvis or pelvic lymphadenopathy seen. Bones: Degenerative changes at the hips. Stable sclerotic bone island posterior right iliac bone. Additional degenerative changes lower lumbar spine. No osseous destructive process. Endplate spondylosis mid to lower thoracic spine. IMPRESSION: 1. INTERVAL HYSTERECTOMY WELL RESECTION AND RE-ANASTOMOSIS AT THE RECTOSIGMOID JUNCTION. 2. LAPAROTOMY SCAR ALONG THE VENTRAL MIDLINE. THERE IS SOME FOCAL SOFT TISSUE THICKENING AT AND JUST DEEP TO THE ABDOMINAL WALL MUSCULATURE HERE THAT MOST LIKELY REPRESENTS SCAR TISSUE. ATTENTION ON FOL LOW-UP TO EXCLUDE SOFT TISSUE METASTATIC DEPOSIT (AXIAL IMAGE 96 AND 97). 3. SOME NONSPECIFIC 7 MM NODULARITY ALONG THE RIGHT PERICAVAL REGION IN THE RETROPERITONEUM (AXIAL IM AGE 85). AGAIN, ATTENTION ON FOLLOW-UP. 4. AT THIS TIME, THERE IS NO CONVINCING EVIDENCE FOR DEFINITE RECURRENT OR METASTATIC DISEASE.
== END | disposition home or self-care (01) ==
LOC: RADPROMAIN 11:55
PROVIDERS: ATTEND Internal Medicine Hematology & Oncology
DX: C56.1 Malignant neoplasm of right ovary (principal); C20 Malignant neoplasm of rectum; Z90.710 Acquired absence of both cervix and uterus
CPT/HCPCS: 71260; 74177; J1642; Q9967

== ENCOUNTER → 2018-06-14 | Outpatient (CLI) | payer BC ==
--- NOTE | 2018-06-14 08:50 | MM ---
Reason for exam: follow-up at short interval from prior study. Last mammogram was performed 6 months ago. History: Patient is postmenopausal, has history of ovarian cancer at age 62, has history of colon cancer at age 62, and history of other cancer. Family history of breast cancer in daughter at age 37, breast cancer in mother at age 59, and breast cancer in maternal aunt at age 60. Cancelled Left Needle Localization of both breasts, March 19, 2007. Attempted Procedure of the left breast, March 19, 2007. Benign left mammotome panel of the left breast, September 04, 2006. Benign excisional biopsy of the right breast, 1982. Took hormonal contraceptives for 8 years. Physical Findings: Nurse did not find any significant physical abnormalities on exam. MG 3D Diag Mammo W/Cad NADER Bilateral CC and MLO view(s) were taken. Prior study comparison: December 10, 2017, bilateral MG 3d screening mammo w/cad. December 09, 2016, bilateral MG 3d screening mammo w/cad. The breast tissue is heterogeneously dense. This may lower the sensitivity of mammography. There is chronic nodularity bilaterally. No significant new findings when compared with previous films. These results were verbally communicated with the patient and result sheet given to the patient on 06/14/18. ASSESSMENT: Benign, BI-RAD 2 RECOMMENDATION: Return to routine screening mammogram schedule for both breasts. Back on schedule.
== END | disposition home or self-care (01) ==
LOC: RADMAMWWP 07:05
PROVIDERS: ATTEND Obstetrics & Gynecology
DX: R92.8 Other abnormal and inconclusive findings on diagnostic imaging of breast (principal)
CPT/HCPCS: 77062; 77066

== ENCOUNTER → 2018-10-06 | Day surgery (SDC) | payer MEDICARE, BC ==
[2018-10-04 13:21] VITALS: BMI 31.4
[~2018-10-06] MED LIST changes: -DEXAMETHASONE SOD PHOSPHATE 10 MG/ML 1 ML VIAL IV ONE; -HEPARIN SODIUM,PORCINE 100 UNIT/ML 5 ML VIAL IV ONE; -HEPARIN SODIUM,PORCINE 5,000 UNIT/ML 1 ML VIAL SQ ONE; -HYDROcodone/APAP 5-325MG 1 EACH TAB PO PRN; -KETAMINE 10 MG/ML 20 ML VIAL ONE; +LACTATED RINGERS 1,000 ML IV SCH; -LIDOCAINE 1% INJ 10MG/ML (20 ML MDV) SQ ONE; -MIDAZOLAM 2 MG/2 ML VIAL IV PRN; -MIDAZOLAM 2 MG/2 ML VIAL ONE; -NALOXONE 0.4 MG/ML 1 ML VIAL IV PRN; -ONDANSETRON 4 MG/2 ML VIAL IVP ONE; -Pre Op ABX Message 1 EACH MISC MISCELLANE ONE; -SCOPOLAMINE 1.5MG/72HR PATCH TRANSDERM ONE; -SODIUM CHLORIDE 0.9% 50 ML with ceFAZolin 2,000 MG IV ONE; -diphenhydrAMINE 50 MG/ML 1 ML VIAL ONE; -fentaNYL (PF) 50 MCG/ML 2 ML AMP IV PRN
[2018-10-06 11:01] VITALS: RESP 16; TEMP 97.8
--- NOTE | 2018-10-06 12:37 | P.PCN ---
Date of Procedure: 10/06/18 Procedure(s) Performed: BRIEF HISTORY: Patient is a 63-year-old pleasant white female, scheduled for an elective colonoscopy as a part of surveillance of prior history of colon cancer diagnosed in October 2017. She was diagnosed with ovarian cancer the same time and his adjuvant chemotherapy followed by rectosigmoid colon resection at [facility]. She is scheduled for a surveillance colonoscopy today. PROCEDURE PERFORMED: Colonoscopy with biopsy. PREOPERATIVE DIAGNOSIS: History of colon cancer in October 2017. IV sedation per Anesthesia. PROCEDURE: After informed consent was obtained, the patient, was brought into the endoscopy unit. IV sedation was administered by Anesthesia under continuous monitoring. Digital rectal examination was normal. Initially the Olympus CF-160 flexible video colonoscope was then inserted in the rectum, gradually advanced into the cecum without any difficulty. Careful examination was performed as the scope was gradually being withdrawn. Ileocecal valve and the appendiceal orifice were visualized and appeared normal. Prep was excellent. Mucosa of the cecum, ascending colon, transverse colon appeared normal. In the descending colon there was a 1 mm probably was a polyp identified suggestive of a lipoma that was biopsied. Rest of the, descending colon, sigmoid colon, and rectum appeared normal. Anastomosis was located at 20 cm from the anal was there appeared normal. Retroflexion was performed in the rectum and no lesions were seen. The patient tolerated the procedure well. IMPRESSION: 1 cm submucosal lipoma noted in the distal descending colon status post biopsy Rest of the colon appeared normal. RECOMMENDATIONS: Findings of this examination were discussed with the patient as well as a family. She was advised to have a repeat surveillance colonoscopy in 2 years..
[2018-10-06 12:56] VITALS: BP 124/71; PULSE 82
== END | disposition home or self-care (01) ==
LOC: ORWHC2ENDO 10:01
PROVIDERS: ATTEND Internal Medicine Gastroenterology
DX: Z85.038 Personal history of other malignant neoplasm of large intestine (principal); D12.4 Benign neoplasm of descending colon; Z85.43 Personal history of malignant neoplasm of ovary; Z90.49 Acquired absence of other specified parts of digestive tract; Z92.21 Personal history of antineoplastic chemotherapy; Z88.0 Allergy status to penicillin; Z79.899 Other long term (current) drug therapy
CPT/HCPCS: 88305; 45380; J2704

== ENCOUNTER → 2018-11-10 | Outpatient (CLI) | payer MEDICARE, BC ==
[2018-11-10 10:45] LABS: African American GFR (CKD) >90 (>60 ml/min/1.73 sqM); Blood Urea Nitrogen 21 mg/dL (7-17)
--- NOTE | 2018-11-10 17:21 | CT ---
EXAMINATION TYPE: CT ChestAbdPelvis w con DATE OF EXAM: 11/10/2018 COMPARISON: CT chest abdomen and pelvis May 17, 2018 and older CTs HISTORY: Follow up ovarian cancer CT DLP: 1674.8 mGycm. Automated Exposure Control for Dose Reduction was Utilized. CONTRAST: CT scan of the thorax, abdomen and pelvis is performed with oral and with IV Contrast, patient inject ed with 100 mL of Isovue 300. FINDINGS: LUNGS: The lungs are grossly clear, there is no concerning parenchymal mass or nodule identified. T here is no pleural effusion or pneumothorax seen. The tracheobronchial tree is patent. MEDIASTINUM: There are no greater than 1 cm hilar or mediastinal lymph nodes. No cardiomegaly or pe ricardial effusion is seen. OTHER: Stable right internal jugular Mediport catheter. LIVER/GB: Cholecystectomy clips are redemonstrated. The liver size is stable and upper limits of norm al. Liver is low dense suggesting diffuse fatty infiltration. PANCREAS: No significant abnormality is seen. SPLEEN: No significant abnormality is seen. ADRENALS: No significant abnormality is seen. KIDNEYS: Symmetric cortical medullary uptake and excretion without hydronephrosis seen bilaterally. S ome surgical clips along course of left ureter axial image 85 are redemonstrated. BOWEL: Oral contrast reaches level of the splenic flexure. No suspicious small or large bowel dilatat ion. Surgical sutures sigmoid rectal junction axial image 107 are again seen. GENITAL ORGANS: Uterus is surgically absent. Occasional pelvic phlebolith is redemonstrated. LYMPH NODES: No new greater than 1cm abdominal or pelvic lymph nodes are appreciated. OSSEOUS STRUCTURES: Moderate to severe narrowing lumbosacral junction is redemonstrated. Mild multile lillie spurring is again seen. OTHER: Postsurgical change to the anterior abdominal wall is redemonstrated with vertical oriented sc ar. Slightly thickened soft tissue just right of midline axial image 86 shows no interval progression consistent with scar tissue. IMPRESSION: No definitive new mass or adenopathy identified to suggest malignant ovarian or metastati c recurrence.
== END | disposition home or self-care (01) ==
LOC: RADPROMAIN 09:37
PROVIDERS: ATTEND Internal Medicine Hematology & Oncology
DX: C56.1 Malignant neoplasm of right ovary (principal); Z03.89 Encounter for observation for other suspected diseases and conditions ruled out; Z88.0 Allergy status to penicillin; Z91.048 Other nonmedicinal substance allergy status
CPT/HCPCS: 82565; 84520; 71260; 74177; 36415; Q9967

== ENCOUNTER 2018-12-22 07:17 | Day surgery (SDC) | payer MEDICARE, BC ==
[2018-12-16 09:29] VITALS: BMI 30.5
[~2018-12-22 07:17] MED LIST changes: -LIDOCAINE 1% 20 ML VIAL (10MG/ML) FOR IV START INTRADERMA ONE; +LIDOCAINE 1% 20 ML VIAL (10MG/ML) FOR IV START INTRADERMA PRN; -PROPOFOL 10 MG/ML 20 ML VIAL IV ONE
[2018-12-22 07:49] VITALS: TEMP 97
[2018-12-22] MEDS ORDERED: DEXAMETHASONE SOD PHOSPHATE 10 MG/ML 1 ML VIAL IV ONE (07:57)
[2018-12-22] MEDS ORDERED: ONDANSETRON 4 MG/2 ML VIAL IVP ONE (07:57)
[2018-12-22] MEDS ORDERED: HEPARIN SODIUM,PORCINE 5,000 UNIT/ML 1 ML VIAL SQ ONE (07:58)
--- NOTE | 2018-12-22 08:05 | P.GSHP ---
History of Present Illness H&P Date: 12/22/18 Chief Complaint: ovarian ca Patient today for Port-A-Cath removal. Recently completed her chemotherapy for ovarian cancer. She has not had any issues with her port. Past Medical History Past Medical History: Cancer Additional Past Medical History / Comment(s): OSTEOPENIA, colon ca 10/2017, Ovarian Cancer History of Any Multi-Drug Resistant Organisms: None Reported Past Surgical History: Adenoidectomy, Appendectomy, Bowel Resection, Cholecystectomy, Hysterectomy, Orthopedic Surgery, Tonsillectomy Additional Past Surgical History / Comment(s): D&C'S. RIGHT KNEE ARTHROSCOPY, colonoscopy. Abd Mass removal, 10.7 Inches of Colon Removed 11/12/2017, PORT A CATH, OVARIES REMOVED Past Anesthesia/Blood Transfusion Reactions: Postoperative Nausea & Vomiting (PONV) Additional Past Anesthesia/Blood Transfusion Reaction / Comment(s): PONV "only with sodium pentothal" Smoking Status: Never smoker - Past Family History Mother Family Medical History: Cancer Additional Family Medical History / Comment(s): age 37 - colon cancer, BREAST CANCER AGE 59 LIVER AND BRAIN CANCER Daughter(s) Family Medical History: Cancer Additional Family Medical History / Comment(s): BREAST CANCER Medications and Allergies Home Medications Medication Instructions Recorded Confirmed Type Cholecalciferol (Vitamin D3) 2,000 unit PO DAILY 10/05/17 12/22/18 History [Vitamin D3] Anastrozole [Arimidex] 1 mg PO DAILY 10/04/18 12/22/18 History Calcium Carbonate [Calcium] 1,200 mg PO BID 10/04/18 12/22/18 History Glucosamine Sulfate 1,500 mg PO BID 10/04/18 12/22/18 History Vitamin E (Dl,Tocopheryl Acet) 185 unit PO DAILY 10/04/18 12/22/18 History [Vitamin E] Allergies Allergy/AdvReac Type Severity Reaction Status Date / Time etodolac Allergy Rash/Hives Verified 12/22/18 07:45 Penicillins Allergy Rash/Hives Verified 12/22/18 07:45 Surgical - Exam Vital Signs Temp Pulse Resp BP Pulse Ox 97 F L 69 16 129/64 98 12/22/18 07:45 12/22/18 07:45 12/22/18 07:45 12/22/18 07:45 12/22/18 07:45 Physical exam: General: Well-developed, well-nourished HEENT: Normocephalic, sclerae nonicteric Abdomen: Nontender, nondistended Extremities: No edema Neuro: Alert and oriented Assessment and Plan (1) Ovarian cancer Narrative/Plan: Will proceed with Port-A-Cath removal at this time Current Visit: No Status: Acute Code(s): C56.9 - MALIGNANT NEOPLASM OF UNSPECIFIED OVARY SNOMED Code(s): 029123170
[2018-12-22] MEDS ORDERED: fentaNYL (PF) 50 MCG/ML 2 ML AMP ONE (08:23)
[2018-12-22] MEDS ORDERED: KETAMINE 10 MG/ML 20 ML VIAL ONE (08:23)
[2018-12-22] MEDS ORDERED: PROPOFOL 10 MG/ML 20 ML VIAL IV ONE (08:23)
[2018-12-22] MEDS ORDERED: MIDAZOLAM 2 MG/2 ML VIAL ONE (08:23)
[2018-12-22] MEDS ORDERED: LIDOCAINE 1% INJ 10MG/ML (20 ML MDV) ONE (08:23)
[2018-12-22] MEDS ORDERED: LIDOCAINE 1% INJ 10MG/ML (20 ML MDV) SQ ONE ×2 (08:46)
[2018-12-22] MEDS ORDERED: NALOXONE 0.4 MG/ML 1 ML VIAL IV PRN (08:58)
--- NOTE | 2018-12-22 08:59 | P.OP ---
Date of Procedure: 12/22/18 Procedure(s) Performed: PREOPERATIVE DIAGNOSIS: Ovarian cancer POSTOPERATIVE DIAGNOSIS: Same PROCEDURE: Port-A-Cath removal SURGEON: Jayna EBL: Minimal ANESTHESIA: Sedation COMPLICATIONS: None OPERATIVE PROCEDURE: Patient was placed in the supine position. The patient was sedated per anesthesia that time. The chest was prepped and draped in the usual sterile fashion. The skin was localized with Marcaine solution. The previous incision was re-incised using a scalpel. The port was easily excised using accommodation of blunt dissection sharp dissection and electrocautery. The subcutaneous tissues were reapproximated using 3-0 Vicryl sutures. The skin was reapproximated using 4-0 Monocryl sutures. Skin glue and sterile dressings were then applied. DISPOSITION: Stable to recovery room
[2018-12-22 09:04] VITALS: RESP 18
[2018-12-22 09:20] VITALS: BP 114/72; PULSE 55
== END 2018-12-22 09:37 | disposition home or self-care (01) ==
LOC: OR 07:17
PROVIDERS: ATTEND Surgery
DX: Z45.2 Encounter for adjustment and management of vascular access device (principal); C56.9 Malignant neoplasm of unspecified ovary; M85.80 Other specified disorders of bone density and structure, unspecified site; Z90.722 Acquired absence of ovaries, bilateral; Z90.710 Acquired absence of both cervix and uterus; Z85.038 Personal history of other malignant neoplasm of large intestine; Z90.49 Acquired absence of other specified parts of digestive tract; Z79.811 Long term (current) use of aromatase inhibitors; Z79.899 Other long term (current) drug therapy; Z88.6 Allergy status to analgesic agent; Z88.0 Allergy status to penicillin; Z80.0 Family history of malignant neoplasm of digestive organs; Z80.3 Family history of malignant neoplasm of breast; Z80.8 Family history of malignant neoplasm of other organs or systems
CPT/HCPCS: 36590; J2250; J1644; J1100; J2405; J2001; J3010; J2704

== ENCOUNTER → 2019-02-23 | Outpatient (CLI) | payer MEDICARE, BC ==
--- NOTE | 2019-02-23 16:31 | BD ---
EXAMINATION TYPE: Axial Bone Density DATE OF EXAM: 02/23/2019 COMPARISON: 2016 CLINICAL HISTORY: post menopausal Height: 5'11 Weight: 227 FRAX RISK QUESTIONS: Secondary Osteoporosis: 3. Menopause before 43: y RISK FACTORS HISTORY OF: Postmenopausal woman: y Take estrogen and/or progesterone medications: How lon MEDICATIONS: Additional Medications: anzaprole Additional History: colo rectal and ovarian cancer, 2017, chemotherapy EXAM MEASUREMENTS: Bone mineral densitometry was performed using the [employer]. Bone mineral density as measured about the Lumbar spine is: ----- L1-L4(G/cm2): 1.062 T Score Values are as follows: ----- L2: -0.9 ----- L3: -0.6 ----- L4: -1.1 ----- L1-L4: -1.0 Bone mineral density has: Decreased -3.1% since study of: 01/01/2016 Bone mineral density about the R hip (g/cm2): 0.797 Bone mineral density about the L hip (g/cm2): 0.716 T Score values are as follows: -----R Neck: -1.7 -----L Neck: -2.3 -----R Total: -1.7 -----L Total: -2.2 Bone mineral density has: Decreased -4.9% since study of: 01/01/2016 IMPRESSION: Osteopenia (T Score between -2.5 and -1). There is slightly increased risk of fracture and the patient may be considered for treatment. Re-Screen 2-5 years. NOTE: T-SCORE=SD OF THE YOUNG ADULT MEAN.
== END | disposition home or self-care (01) ==
LOC: RADBDWWP 15:52
PROVIDERS: ATTEND Internal Medicine Hematology & Oncology
DX: M85.80 Other specified disorders of bone density and structure, unspecified site (principal); N95.1 Menopausal and female climacteric states; Z79.890 Hormone replacement therapy
CPT/HCPCS: 77080

== ENCOUNTER → 2019-05-12 | Outpatient (CLI) | payer MEDICARE, BC ==
[2019-05-12 08:10] LABS: African American GFR (CKD) >90 (>60 ml/min/1.73 sqM); Blood Urea Nitrogen 18 mg/dL (7-17); Non-African American GFR(CKD) >90 (>60 ml/min/1.73 sqM)
--- NOTE | 2019-05-12 10:02 | CT ---
EXAMINATION TYPE: CT ChestAbdPelvis w con DATE OF EXAM: 05/12/2019 COMPARISON: CT November 10, 2018 and older CTs. HISTORY: Follow up rectal/ovarian ca CT DLP: 1566.9 mGycm. Automated Exposure Control for Dose Reduction was Utilized. CONTRAST: CT scan of the thorax, abdomen and pelvis is performed with IV Contrast, patient injected with 100 mL of Isovue 300. FINDINGS: LUNGS: The lungs are grossly clear, there is no concerning parenchymal mass or nodule identified. T here is no pleural effusion or pneumothorax seen. The tracheobronchial tree is patent. MEDIASTINUM: There are no greater than 1 cm hilar or mediastinal lymph nodes. No cardiomegaly or pe ricardial effusion is seen. OTHER: Interval removal of right internal jugular Mediport catheter. LIVER/GB: Cholecystectomy clips are redemonstrated. PANCREAS: No significant abnormality is seen. SPLEEN: No significant abnormality is seen. ADRENALS: No significant abnormality is seen. KIDNEYS: Symmetric cortical medullary uptake and excretion without hydronephrosis seen bilaterally. S ome surgical clips along course of left mid ureter coronal image 45 are redemonstrated. BOWEL: Oral contrast reaches level of the rectum. Surgical sutures sigmoid rectal posterior pelvis ax ial image 109 are better identified on current study. No suspicious small or large bowel dilatation.. GENITAL ORGANS: Uterus is surgically absent. Both ovaries likely surgically absent. No suspicious new adnexal lesions. Occasional bilateral scattered pelvic phleboliths. LYMPH NODES: No new greater than 1cm abdominal or pelvic lymph nodes are appreciated. No new suspicio us mesenteric nodularity. OSSEOUS STRUCTURES: Moderate 2 severe disc space narrowing lumbosacral junction is redemonstrated. Fa cet arthropathy lower lumbar levels redemonstrated. Stable sclerotic focus right iliac bone near hip joint coronal image 62. Additional stable sclerotic focus posterior right iliac bone near SI joint co davion image 79. Findings favor benign bone islands. No new suspicious lytic or sclerotic lesions. OTHER: Postsurgical change to the anterior abdominal wall with vertical areas of scarring and slightl y more horizontal scarring axial image 43 extending to right of midline near level of umbilicus is re demonstrated. IMPRESSION: Overall stable findings from most recent CT. No new suspicious masses or adenopathy to king ggest neoplastic recurrence.
== END | disposition home or self-care (01) ==
LOC: RADCTMAIN 07:34
PROVIDERS: ATTEND Internal Medicine Hematology & Oncology
DX: Z03.89 Encounter for observation for other suspected diseases and conditions ruled out (principal); C20 Malignant neoplasm of rectum; C56.1 Malignant neoplasm of right ovary; Z88.0 Allergy status to penicillin; Z91.048 Other nonmedicinal substance allergy status
CPT/HCPCS: 82565; 84520; 71260; 74177; Q9967

== ENCOUNTER → 2019-06-22 | Outpatient (CLI) | payer MEDICARE, BC ==
--- NOTE | 2019-06-27 10:26 | MM ---
Reason for exam: screening (asymptomatic). Last mammogram was performed 1 year ago. History: Patient is postmenopausal, has history of ovarian cancer at age 62, has history of colon cancer at age 62, and history of other cancer. Family history of breast cancer in daughter at age 37, breast cancer in mother at age 59, and breast cancer in maternal aunt at age 60. Cancelled Left Needle Localization of both breasts, March 19, 2007. Attempted Procedure of the left breast, March 19, 2007. Benign left mammotome panel of the left breast, September 04, 2006. Benign excisional biopsy of the right breast, 1982. Took hormonal contraceptives for 8 years. Taking antineoplastic. Physical Findings: A clinical breast exam by your physician is recommended on an annual basis and results should be correlated with mammographic findings. MG 3D Screening Mammo W/Cad Bilateral CC and MLO view(s) were taken. Prior study comparison: June 14, 2018, bilateral MG 3d diag mammo w/cad NADER. December 10, 2017, bilateral MG 3d screening mammo w/cad. The breast tissue is heterogeneously dense. This may lower the sensitivity of mammography. There is chronic nodularity bilaterally. No significant changes when compared with prior studies. ASSESSMENT: Benign, BI-RAD 2 RECOMMENDATION: Routine screening mammogram of both breasts in 1 year.
== END | disposition home or self-care (01) ==
LOC: RADMAMWWP 06:50
PROVIDERS: ATTEND Obstetrics & Gynecology
DX: Z12.31 Encounter for screening mammogram for malignant neoplasm of breast (principal)
CPT/HCPCS: 77063; 77067

== ENCOUNTER → 2019-12-12 | Outpatient (CLI) | payer MEDICARE, BC ==
[2019-12-12 10:46] LABS: African American GFR (CKD) >90 (>60 ml/min/1.73 sqM); Blood Urea Nitrogen 21 mg/dL (7-17); Non-African American GFR(CKD) >90 (>60 ml/min/1.73 sqM)
--- NOTE | 2019-12-12 15:29 | CT ---
EXAMINATION TYPE: CT ChestAbdPelvis w con DATE OF EXAM: 12/12/2019 COMPARISON: CT chest abdomen pelvis 05/12/2019 HISTORY: follow up rectal/ovarian cancer CT DLP: 1875.1 mGycm Automated exposure control for dose reduction was used. CONTRAST: CT scan of the chest, abdomen and pelvis is performed with Oral Contrast and with IV Contrast, patien t injected with 100 mL of Isovue 300. FINDINGS: LUNGS: The lungs are grossly clear, there is no concerning parenchymal mass or nodule identified. Th ere is no pleural effusion or pneumothorax seen. The tracheobronchial tree is patent. MEDIASTINUM: There are no greater than 1 cm hilar or mediastinal lymph nodes. No thoracic aortic aneu rysm. Cardiac size normal. No pericardial effusion is seen. OTHER: No axillary lymphadenopathy. Left paraspinous musculature intramuscular lipoma of the inferio r thoracic spine. LIVER/GB: Normal liver. Status post cholecystectomy. No intrahepatic or extrahepatic biliary ductal d ilatation. PANCREAS: Normal. SPLEEN: Normal. ADRENALS: Normal. KIDNEYS: Normal. BOWEL: No evidence of bowel obstruction inflammation, or thickening. Rectal anastomosis with no evid ence of narrowing. PERITONEUM: No pneumoperitoneum, free fluid or peritoneal thickening. PELVIS: Normal urinary bladder. Status post hysterectomy and oophorectomy. LYMPH NODES: No lymphadenopathy. Left retroperitoneal surgical clips. VASCULATURE: No abdominal aortic aneurysm. Mild calcified atherosclerotic disease. MUSCULOSKELETAL: Unchanged appearance of midline and para midline right ventral abdominal wall postsu rgical change and possibly area of old fat necrosis. No aggressive osseous destructive lesions. IMPRESSION: No evidence of recurrent or metastatic ovarian or rectal cancer of the chest, abdomen, or pelvis.
== END | disposition home or self-care (01) ==
LOC: RADPROMAIN 10:05
PROVIDERS: ATTEND Internal Medicine Hematology & Oncology
DX: C20 Malignant neoplasm of rectum (principal); C56.1 Malignant neoplasm of right ovary; Z88.0 Allergy status to penicillin; Z88.5 Allergy status to narcotic agent
CPT/HCPCS: 82565; 84520; 71260; 74177; 36415; Q9967

== ENCOUNTER → 2020-06-26 | Outpatient (CLI) | payer MEDICARE, BC ==
[2020-06-26 08:49] LABS: African American GFR (CKD) >90 (>60 ml/min/1.73 sqM); Blood Urea Nitrogen 15 mg/dL (7-17); Non-African American GFR(CKD) >90 (>60 ml/min/1.73 sqM)
--- NOTE | 2020-06-26 13:05 | CT ---
EXAMINATION TYPE: CT ChestAbdPelvis w con DATE OF EXAM: 06/26/2020 COMPARISON: CT 12/12/2019 HISTORY: Ovarian Cancer, C 56.1, Z03.89 CT DLP: 1879 mGycm Automated exposure control for dose reduction was used. CONTRAST: CT scan of the chest, abdomen and pelvis is performed with Oral Contrast and with IV Contrast, patien t injected with 100 ml mL of Isovue 300. FINDINGS: LUNGS: The lungs are grossly clear, there is no concerning parenchymal mass or nodule identified. T here is no pleural effusion or pneumothorax seen. The tracheobronchial tree is patent. MEDIASTINUM: There are no greater than 1 cm hilar or mediastinal lymph nodes. No pericardial effusi on is seen. AORTA: No significant abnormality is seen. OTHER: Left axillary nodes are not enlarged but are more conspicuous than on prior exam. Superficial to the rectus abdominis muscle on the right there is some possible post inflammatory change within t he subcutaneous fat anteriorly to the musculature similar to prior exam LIVER/GB: Patient is post cholecystectomy. There is no evident liver mass. The liver is enlarged and shows low-attenuation consistent with hepatic steatosis. PANCREAS: No significant abnormality is seen. SPLEEN: No significant abnormality is seen. ADRENALS: No significant abnormality is seen. KIDNEYS: No significant abnormality is seen. REPRODUCTIVE ORGANS: Not seen. BOWEL: No significant abnormality is seen. FREE AIR: No Free Air visible. ASCITES: None seen. RETROPERITONEAL ADENOPATHY: No retroperitoneal adenopathy is seen. LYMPH NODES: No greater than 1 cm abdominal or pelvic lymph nodes are appreciated. URINARY BLADDER: No significant abnormality is seen. PELVIC ADENOPATHY: None visualized. OSSEOUS STRUCTURES: No significant interval change is seen. IMPRESSION: Nodes are not enlarged in left axilla but are more conspicuous and may be reactive, addit ional follow-up suggested. Hepatomegaly, hepatic steatosis. Postop changes.
== END | disposition home or self-care (01) ==
LOC: RADCTMAIN 08:00
PROVIDERS: ATTEND Internal Medicine Hematology & Oncology
DX: Z03.89 Encounter for observation for other suspected diseases and conditions ruled out (principal); C56.1 Malignant neoplasm of right ovary; C20 Malignant neoplasm of rectum; K76.0 Fatty (change of) liver, not elsewhere classified; Z90.49 Acquired absence of other specified parts of digestive tract; Z88.0 Allergy status to penicillin; Z91.048 Other nonmedicinal substance allergy status
CPT/HCPCS: 82565; 84520; 71260; 74177; 36415; Q9967

== ENCOUNTER → 2020-07-04 | Outpatient (CLI) | payer MEDICARE, BC ==
--- NOTE | 2020-07-06 11:43 | MM ---
Reason for exam: screening (asymptomatic). Last mammogram was performed 1 year ago. History: Patient is postmenopausal, has history of ovarian cancer at age 62, has history of colon cancer at age 62, and history of other cancer. Family history of breast cancer in daughter at age 37, breast cancer in mother at age 59, and breast cancer in maternal aunt at age 60. Cancelled Left Needle Localization of both breasts, March 19, 2007. Attempted Procedure of the left breast, March 19, 2007. Benign left mammotome panel of the left breast, September 04, 2006. Benign excisional biopsy of the right breast, 1982. Took hormonal contraceptives for 8 years. Taking antineoplastic. Physical Findings: A clinical breast exam by your physician is recommended on an annual basis and results should be correlated with mammographic findings. MG 3D Screening Mammo W/Cad Bilateral CC and MLO view(s) were taken. Prior study comparison: June 22, 2019, bilateral MG 3d screening mammo w/cad. June 14, 2018, bilateral MG 3d diag mammo w/cad NADER. The breast tissue is heterogeneously dense. This may lower the sensitivity of mammography. Previous mammotome biopsy in the left breast. There is chronic nodularity bilaterally. No significant changes when compared with prior studies. ASSESSMENT: Benign, BI-RAD 2 RECOMMENDATION: Routine screening mammogram of both breasts in 1 year.
== END ==
LOC: RADMAMWWP 08:41
PROVIDERS: ATTEND Obstetrics & Gynecology
DX: Z12.31 Encounter for screening mammogram for malignant neoplasm of breast (principal); Z78.0 Asymptomatic menopausal state; Z80.3 Family history of malignant neoplasm of breast; Z85.038 Personal history of other malignant neoplasm of large intestine; Z85.3 Personal history of malignant neoplasm of breast; Z85.43 Personal history of malignant neoplasm of ovary
CPT/HCPCS: 77063; 77067

== ENCOUNTER 2020-10-10 10:02 | Day surgery (SDC) | payer MEDICARE, BC ==
[2020-10-08 15:16] VITALS: BMI 31.4
[2020-10-10 10:38] VITALS: TEMP 97.8
[2020-10-10] MEDS ORDERED: LACTATED RINGERS 1,000 ML IV ONE (10:45)
[2020-10-10] MEDS ORDERED: MIDAZOLAM 2 MG/2 ML VIAL ONE (11:11)
[2020-10-10] MEDS ORDERED: fentaNYL (PF) 50 MCG/ML 2 ML AMP ONE (11:11)
[2020-10-10] MEDS ORDERED: PROPOFOL 10 MG/ML 20 ML VIAL IV ONE (11:11)
--- NOTE | 2020-10-10 11:33 | P.PCN ---
Date of Procedure: 10/10/20 Procedure(s) Performed: BRIEF HISTORY: Patient is a -65year-old pleasant [place] female scheduled for an elective colonoscopy as a part of surveillance of history of colon cancer diagnosed in November 2017. PROCEDURE PERFORMED: Colonoscopy with biopsy and snare polypectomy. PREOPERATIVE DIAGNOSIS: Surveillance of colon cancer diagnosed in November 2017. IV sedation per Anesthesia. PROCEDURE: After informed consent was obtained, the patient, was brought into the endoscopy unit. IV sedation was administered by Anesthesia under continuous monitoring. Digital rectal examination was normal. Initially the Olympus CF-160 flexible video colonoscope was then inserted in the rectum, gradually advanced into the cecum without any difficulty. Careful examination was performed as the scope was gradually being withdrawn. Ileocecal valve and the appendiceal orifice were visualized and appeared normal. Prep was excellent. Mucosa of the cecum, ascending colon, appeared normal. The proximal transverse colon there was a 2 cm submucosal polyp suggestive of a lipoma noted which was biopsied. In the descending colon there was a 5-6 mm sessile polyp removed by snare polypectomy. Rest of the transverse colon, descending colon, sigmoid colon, and rectum appeared normal. Anastomosis was located at 15 cm from the anal verge. Retroflexion was performed in the rectum and no lesions were seen. The patient tolerated the procedure well. IMPRESSION: 5-6 mm descending colon polyp serous posterior polypectomy 2 centimeter submucosal lipoma in the transverse colon status post biopsy RECOMMENDATIONS: Findings of this examination were discussed with the patient as well as a family. She was advised to follow with the biopsy results. If the biopsy shows an adenoma she can have a repeat colonoscopy in 2-3 years.
[2020-10-10 11:56] VITALS: BP 138/80; PULSE 78; RESP 18
== END 2020-10-10 12:28 | disposition home or self-care (01) ==
LOC: ORWHC2ENDO 10:02
PROVIDERS: ATTEND Internal Medicine Gastroenterology
DX: Z12.11 Encounter for screening for malignant neoplasm of colon (principal); D12.4 Benign neoplasm of descending colon; I25.10 Atherosclerotic heart disease of native coronary artery without angina pectoris; E07.9 Disorder of thyroid, unspecified; Z85.038 Personal history of other malignant neoplasm of large intestine; Z85.43 Personal history of malignant neoplasm of ovary; Z79.899 Other long term (current) drug therapy; Z88.4 Allergy status to anesthetic agent; Z88.0 Allergy status to penicillin; Z88.8 Allergy status to other drugs, medicaments and biological substances
CPT/HCPCS: 88305; 45380; 45385; J2250; J3010; J2704

== ENCOUNTER → 2020-12-28 | Outpatient (CLI) | payer MEDICARE, BC ==
[2020-12-28 11:49] LABS: African American GFR (CKD) >90 (>60 ml/min/1.73 sqM); Blood Urea Nitrogen 22 mg/dL (7-17); Non-African American GFR(CKD) 86 (>60 ml/min/1.73 sqM)
--- NOTE | 2020-12-28 15:31 | CT ---
EXAMINATION TYPE: CT ChestAbdPelvis w con DATE OF EXAM: 12/28/2020 COMPARISON: 06/26/2020, 12/12/2019, 05/12/2019 HISTORY: 65-year-old female C20, C5 6.1 Follow up rectal and ovarian cancer TECHNIQUE: Contiguous axial scanning of the chest, abdomen, and pelvis performed with IV Contrast, pa tient injected with 100 mL of Isovue 300. Delayed images through the kidneys were obtained. Coronal/s agittal reconstructions performed. CT DLP: 1697.4 mGycm Automated exposure control for dose reduction was used. FINDINGS: CHEST: Elongated fatty tumor left paraspinal musculature within the lower thorax measuring 3.6 x 2.5 cm and 7.2 cm long. Minimal internal streaky density is present along the medial margin, unchanged. Heart normal size without pericardial effusion. Ectatic ascending aorta 3.6 cm. Mild atherosclerotic arch calcifications with conventional arch vesse l branching anatomy. Mildly enlarged caliber to the main right pulmonary artery up to 2.9 cm may reflect underlying pulmon pedro arterial hypertension. The previous left axillary lymph nodes have decreased back to normal size, symmetric to the right magnolia e. Findings were likely reactive/post inflammatory. No thoracic lymphadenopathy by CT size criteria. Minimal biapical pleural-parenchymal scarring. No consolidation or pleural effusion. ABDOMEN: No focal liver lesion. A few capsular calcifications along the hepatic dome are unchanged. Portal kimberli ous system is patent. No biliary ductal dilatation. Cholecystectomy clips. Adrenal glands, kidneys, spleen, and pancreas within normal limits. No dilated small bowel, free fluid, or free air. No mesenteric or retroperitoneal lymphadenopathy. Stable scarring along the anterior midline abdominal wall. Oral contrast progressed into the descendi ng colon. Mild to moderate stool. No pericolonic inflammatory change. Staple line at the distal rectu m from prior resection and reanastomosis. PELVIS: Bladder is urine distended. Uterus surgically absent. Neither ovary clearly visualized. A few pelvic phleboliths. No abnormal fluid collection in the pelvis or pelvic lymphadenopathy. BONES: Mild to moderate degenerative change at the hips. Facet arthropathy lower lumbar spine. Anterior plat e spondylosis lower thoracic spine. No osseous destructive process. IMPRESSION: 1. POST SURGICAL CHANGES OF DISTAL RECTAL RESECTION AND RE-ANASTOMOSIS. STATUS POST HYSTERECTOMY AND BILATERAL SALPINGO-OOPHORECTOMIES. STABLE SCARRING ANTERIOR MIDLINE ABDOMINAL WALL. 2. NO EVIDENCE FOR RECURRENT OR METASTATIC DISEASE. 3. NOTE A FATTY MASS MEASURING 7.2 CM LONG INVOLVING THE LEFT PARASPINAL MUSCULATURE AT THE LEVEL OF THE LOWER CHEST. THIS REMAINS UNCHANGED BACK TO AT LEAST 05/12/2019 AND PROBABLY REPRESENTS A LIPOMA. T HE SIZE AND PRESENCE OF MINIMAL INTERNAL STRANDY DENSITY MAKES ATYPICAL LIPOMATOUS TUMOR AND LOW-GRAD E LIPOSARCOMA IN THE DIFFERENTIAL. THIS SHOULD ALSO BE FOLLOWED ON THE PATIENT'S SUBSEQUENT EXAMS.
== END | disposition home or self-care (01) ==
LOC: RADCTMAIN 10:53
PROVIDERS: ATTEND Internal Medicine Hematology & Oncology
DX: M62.89 Other specified disorders of muscle (principal); Z85.048 Personal history of other malignant neoplasm of rectum, rectosigmoid junction, and anus; Z85.43 Personal history of malignant neoplasm of ovary
CPT/HCPCS: 82565; 84520; 71260; 74177; 36415; Q9967

== ENCOUNTER → 2021-04-22 | Outpatient (CLI) | payer MEDICARE, BC ==
--- NOTE | 2021-04-22 09:44 | BD ---
EXAMINATION TYPE: Axial Bone Density DATE OF EXAM: 04/22/2021 COMPARISON: 02.23.2019 CLINICAL HISTORY: 65 YR OLD FEMALE.....ICD-10 CODE: M85.9 OSTEOPENIA, Z79.890 MENOPAUSAL Height: 70.5 Weight: 230 FRAX RISK QUESTIONS: NOTHING ADDITIONAL TO ADD RISK FACTORS HISTORY OF: Postmenopausal woman: YES, AT AGE 48 YRS OLD Hyperparathyroidism: NO Adrenal Insufficiency: NO MEDICATIONS: Additional Medications: ANASTROZOLE, REFLUX MEDS, HX OF CHEMO, CALCIUM AND D3 Additional History: HX OF OVARIAN AND COLORECTAL CANCER, EXAM MEASUREMENTS: Bone mineral densitometry was performed using the [employer] System. Bone mineral density as measured about the Lumbar spine is: ----- L1-L4(G/cm2): 1.101 T Score Values are as follows: ----- L1: -0.9 ----- L2: -0.8 ----- L3: -0.4 ----- L4: -0.7 ----- L1-L4: -0.7 Bone mineral density has: Increased 2.7% since study of: 02.23.2019 Bone mineral density about the R hip (g/cm2): 0.815 Bone mineral density about the L hip (g/cm2): 0.762 T Score values are as follows: -----R Neck: -1.6 -----L Neck: -2.2 -----R Total: -1.5 -----L Total: -2.0 Bone mineral density has: Increased 3.1% since study of: 02.23.2019 FRAX%s: THERE IS A 11.9% CHANCE FOR A MAJOR OSTEOPOROTIC FX AND A 2.2% FOR HIPS.....PROBABILITY FO R FX IN 10 YRS TIME IMPRESSION: Osteopenia (T Score between -2.5 and -1) remains present. There is slightly increased risk of fracture and the patient may be considered for treatment. Re-Screen 2-5 years. NOTE: T-SCORE=SD OF THE YOUNG ADULT MEAN.
== END | disposition home or self-care (01) ==
LOC: RADBDWWP 08:15
PROVIDERS: ATTEND Internal Medicine Hematology & Oncology
DX: M85.852 Other specified disorders of bone density and structure, left thigh (principal); M85.851 Other specified disorders of bone density and structure, right thigh; Z78.0 Asymptomatic menopausal state
CPT/HCPCS: 77080

== ENCOUNTER → 2021-06-24 | Outpatient (CLI) | payer MEDICARE, BC ==
[2021-06-24 12:29] LABS: African American GFR (CKD) >90 (>60 ml/min/1.73 sqM); Blood Urea Nitrogen 17 mg/dL (7-17); Non-African American GFR(CKD) 79 (>60 ml/min/1.73 sqM)
--- NOTE | 2021-06-24 19:12 | CT ---
EXAMINATION TYPE: CT Chest Abd Pelvis w con DATE OF EXAM: 06/24/2021 COMPARISON: CT dated 12/28/2020 HISTORY: Follow up rectal and ovarian cancer. CT DLP: 1700 mGycm Automated exposure control for dose reduction was used. CONTRAST: CT scan of the chest, abdomen and pelvis is performed with Oral Contrast and with IV Contrast, patien t injected with 100 mL of Isovue 370. FINDINGS: CHEST: Unremarkable lungs. No new pulmonary nodules or suspicious lesion. No progressive lung lesion. Patent central airways. No pleural or pericardial effusion. No gross cardiomegaly. Scattered arterial ather osclerotic calcifications. The right pulmonary artery measures up to 2.8 cm, stable. No progressive l ymphadenopathy. Questionable tiny right thyroid lobe hypodensity, for correlation with thyroid ultrasound results. No aggressive bone lesion. Grossly stable left paraspinal fat-containing lesion measuring 2.5 x 3.7 cm, possibly representing lipoma, yet with thin medial septation, attention on follow-up. Abdomen and pelvis: Artifactual images. Unremarkable colonic anastomosis in the pelvis. Fecal loading of the rectum and c olon. No gross colonic mass however a small lesion cannot be excluded. Unremarkable stomach, duodenum and small bowel. No definite hepatic focal lesion. Previous cholecystectomy. Unremarkable spleen, pa ncreas, adrenals and kidneys. Scattered atherosclerotic calcifications. Unremarkable urinary bladder. Previous hysterectomy. No gross adnexal mass. Suspected perineal prolap se, please correlate clinically. No suspicious lymphadenopathy or sizable ascites. Anterior abdominal wall surgical scar, stable. Degenerative changes at L5-S1 level. IMPRESSION: Stable condition. No evidence of local tumor recurrence or metastatic disease in the chest, abdomen o r the pelvis. Incidental findings as described above.
== END | disposition home or self-care (01) ==
LOC: RADCTMAIN 11:39
PROVIDERS: ATTEND Internal Medicine Hematology & Oncology
DX: C20 Malignant neoplasm of rectum (principal); C56.1 Malignant neoplasm of right ovary; I70.90 Unspecified atherosclerosis; M47.817 Spondylosis without myelopathy or radiculopathy, lumbosacral region; K63.89 Other specified diseases of intestine; Z90.49 Acquired absence of other specified parts of digestive tract; Z90.710 Acquired absence of both cervix and uterus
CPT/HCPCS: 82565; 84520; 71260; 74177; 36415; Q9967 ×2

== ENCOUNTER → 2021-07-05 | Outpatient (CLI) | payer MEDICARE, BC ==
--- NOTE | 2021-07-05 12:15 | MM ---
Reason for exam: screening (asymptomatic). Last mammogram was performed 1 year ago. History: Patient is postmenopausal, has history of ovarian cancer at age 62, has history of colon cancer at age 62, and history of other cancer. Family history of breast cancer in daughter at age 37, breast cancer in mother at age 59, and breast cancer in maternal aunt at age 60. Cancelled Left Needle Localization of both breasts, March 19, 2007. Attempted Procedure of the left breast, March 19, 2007. Benign left mammotome panel of the left breast, September 04, 2006. Benign excisional biopsy of the right breast, 1982. Took hormonal contraceptives for 8 years. Taking antineoplastic. Physical Findings: A clinical breast exam by your physician is recommended on an annual basis and results should be correlated with mammographic findings. MG 3D Screening Mammo W/Cad Bilateral CC and MLO view(s) were taken. Prior study comparison: July 04, 2020, bilateral MG 3d screening mammo w/cad. June 22, 2019, bilateral MG 3d screening mammo w/cad. The breast tissue is heterogeneously dense. This may lower the sensitivity of mammography. Previous mammotome biopsy in the left breast. There is chronic nodularity bilaterally. No significant changes when compared with prior studies. ASSESSMENT: Benign, BI-RAD 2 RECOMMENDATION: Routine screening mammogram of both breasts in 1 year.
== END | disposition home or self-care (01) ==
LOC: RADMAMWWP 06:57
PROVIDERS: ATTEND Obstetrics & Gynecology
DX: Z12.31 Encounter for screening mammogram for malignant neoplasm of breast (principal); Z80.3 Family history of malignant neoplasm of breast
CPT/HCPCS: 77063; 77067

== ENCOUNTER → 2023-01-13 | Outpatient (CLI) | payer MEDICARE, BC ==
[2023-01-13 12:58] LABS: African American GFR (CKD) >90 (>60 ml/min/1.73 sqM); Blood Urea Nitrogen 17 mg/dL (7-17); Non-African American GFR(CKD) >90 (>60 ml/min/1.73 sqM)
--- NOTE | 2023-01-13 14:00 | CT ---
EXAMINATION TYPE: CT ChestAbdPelvis w con DATE OF EXAM: 01/13/2023 COMPARISON: 12/27/2021 HISTORY: OBS FOR METS, HX OF OVARIAN AND COLON CA. CT DLP: 1842.20 mGycm CONTRAST: CT scan of the chest, abdomen and pelvis is performed with Oral Contrast and with IV Contrast, patien t injected with 100 mL of Isovue 300. CT Chest: LUNGS: The lungs are clear and free of infiltrate or atelectasis. No pulmonary nodule or mass is det ected. No pleural effusion or CT evidence of interstitial lung disease. MEDIASTINUM: Thoracic aorta is of normal caliber. The heart is not enlarged. No evidence for media stinal mass or adenopathy. HILAR STRUCTURES: No evidence for mass. No hilar adenopathy is appreciated. OTHER: No significant abnormality. CONTRAST CT ABDOMEN AND PELVIS FINDINGS: LIVER/GB: The gallbladder is surgically absent. No space occupying hepatic lesion. Biliary tree is of normal caliber. Hepatic steatosis redemonstrated. PANCREAS: No inflammation. No distinct mass. SPLEEN: No splenic enlargement. No lesion seen. ADRENALS: No nodule. No thickening. KIDNEYS/BLADDER: No hydronephrosis. No nephrolithiasis. No distinct renal mass. BOWEL: Normal appendix. Normal bowel caliber. No inflammation. GENITAL ORGANS: Hysterectomy changes noted. No evidence for adnexal mass. Vaginal cuff is unremarkabl e. LYMPH NODES: No greater than 1cm abdominal or pelvic lymph nodes are appreciated. AORTA: No significant abnormality. OSSEOUS STRUCTURES: No significant abnormality is seen. OTHER: No significant additional abnormality is seen. IMPRESSION: 1. No evidence for recurrence or metastatic disease within the chest abdomen or pelvis.
== END | disposition home or self-care (01) ==
LOC: RADCTMAIN 11:13
PROVIDERS: ATTEND Internal Medicine Hematology & Oncology
DX: Z03.89 Encounter for observation for other suspected diseases and conditions ruled out (principal); C56.1 Malignant neoplasm of right ovary; C18.9 Malignant neoplasm of colon, unspecified; Z79.890 Hormone replacement therapy
CPT/HCPCS: 82565; 84520; 71260; 74177; 36415; Q9967

== ENCOUNTER → 2023-04-23 | Outpatient (CLI) | payer MEDICARE, BC ==
--- NOTE | 2023-04-23 21:51 | BD ---
EXAMINATION TYPE: Axial Bone Density DATE OF EXAM: 04/23/2023 CLINICAL HISTORY: 67 years old Female. ICD-10 CODE: Z79.890HORMONE REPLACEMENT THERAPY Height: 70in Weight: 223lb FRAX RISK QUESTIONS: Secondary Osteoporosis: RISK FACTORS HISTORY OF: Active: yes Postmenopausal woman: yes MEDICATIONS: Additional Medications: anastrozole, calcium Additional History: ovarian and colon cancer EXAM MEASUREMENTS: Bone mineral densitometry was performed using the [employer] System. Bone mineral density as measured about the Lumbar spine is: ----- L1-L4(G/cm2): 1.097 T Score Values are as follows: ----- L1: -1.3 ----- L2: -0.7 ----- L3: -0.3 ----- L4: -0.8 ----- L1-L4: -0.7 Z Score Values are as follows: ----- L1: -0.8 ----- L2: -0.2 ----- L3: 0.2 ----- L4: -0.3 ----- L1-L4: -0.2 Bone mineral density has: Decreased -0.7% since study of: 04-22-21 Bone mineral density about the R hip (g/cm2): 0.812 Bone mineral density about the L hip (g/cm2): 0.734 T Score values are as follows: -----R Neck: -1.4 -----L Neck: -2.2 -----R Total: -1.6 -----L Total: -2.2 Z Score values are as follows: -----R Neck: -0.5 -----L Neck: -1.3 -----R Total: -1.0 -----L Total: -1.6 Bone mineral density has: Decreased -1.9% since study of: 04-22-21 FRAX%s: The graph provided illustrates a 12.2% chance for a major osteoporotic fx and a 2.5% chance f or the hips probability for fx in 10 years time. IMPRESSION: Osteopenia (T Score between -2.5 and -1). There is slightly increased risk of fracture and the patient may be considered for treatment. Re-Screen 2-5 years. NOTE: T-SCORE=SD OF THE YOUNG ADULT MEAN.
== END | disposition home or self-care (01) ==
LOC: RADBDWWP 10:43
PROVIDERS: ATTEND Internal Medicine Hematology & Oncology
DX: Z03.89 Encounter for observation for other suspected diseases and conditions ruled out (principal); M85.89 Other specified disorders of bone density and structure, multiple sites; Z79.890 Hormone replacement therapy; Z78.0 Asymptomatic menopausal state
CPT/HCPCS: 77080

== ENCOUNTER → 2023-07-13 | Outpatient (CLI) | payer MEDICARE, BC ==
--- NOTE | 2023-07-15 07:46 | MM ---
Reason for Exam: Screening (asymptomatic). Last screening mammogram was performed 12 month(s) ago. Patient History: Menarche at age 9. First Full-Term at age 18. Left ovary removed at age 62. Right ovary removed at age 62. Hysterectomy at age 38. Postmenopausal. Ovarian cancer, age 62. Colorectal cancer, age 62. Other cancer. Patient used Hormonal Contraceptives for 8 years. 1982, Benign Excisional Biopsy on the right side. 09/04/2006, Benign Core Biopsy on the left side. 03/19/2007, Attempted Procedure on the left side. 03/19/2007, Bilateral Cancelled Left Needle Localization. Maternal aunt had breast cancer, age 60. Paternal aunt had breast cancer at or over age 50. Daughter had breast cancer, age 37. Mother had breast cancer, age 59. Risk Values: Marley 5 year model risk: 11.2%. NCI Lifetime model risk: 30.5%. Prior Study Comparison: 07/04/2020 Bilateral Screening Mammogram, [facility]. 07/05/2021 Bilateral Screening Mammogram, [facility]. 07/07/2022 Bilateral MG 3D screening mammo w/cad, [facility]. Tissue Density: There are scattered areas of fibroglandular density. Findings: Analyzed By CAD. Microclip left breast from prior biopsy. Chronic nodularity on the right. There is no suspicious group of microcalcifications or new suspicious mass in either breast. Overall Assessment: Benign, BI-RAD 2 Management: Screening Mammogram of both breasts in 1 year. SEE NOTE BELOW IN REGARDS TO PATIENT'S INCREASED 5 YEAR MARLEY SCORE AND MARKEDLY INCREASED LIFETIME RISK SCORE. Patient should continue monthly self-breast exams. A clinical breast exam by your physician is recommended on an annual basis. This exam should not preclude additional follow-up of suspicious palpable abnormalities. Note on Marley scores and lifetime risk: 1. A Marley score greater than 3% is considered moderate risk. If this is the case, consider specialist referral to assess eligibility for a risk reducing agent. 2. If overall lifetime risk for the development of breast cancer is 20% or higher, the patient may qualify for future screening with alternating mammogram and breast MRI. Electronically signed and approved by: Cee Pak M.D. Radiologist
== END | disposition home or self-care (01) ==
LOC: RADMAMWWP 09:07
PROVIDERS: ATTEND Internal Medicine Hematology & Oncology
DX: Z12.31 Encounter for screening mammogram for malignant neoplasm of breast (principal); Z78.0 Asymptomatic menopausal state; Z80.3 Family history of malignant neoplasm of breast
CPT/HCPCS: 77063; 77067

== ENCOUNTER → 2024-01-15 | Outpatient (CLI) | payer MEDICARE, BC ==
[2024-01-15 10:00] LABS: African American GFR (CKD) >90 (>60 ml/min/1.73 sqM); Blood Urea Nitrogen 20 mg/dL (7-17); Non-African American GFR(CKD) 86 (>60 ml/min/1.73 sqM)
--- NOTE | 2024-01-15 12:01 | CT ---
EXAMINATION TYPE: CT ChestAbdPelvis w con CT DLP: 1755.20 mGycm, Automated exposure control for dose reduction was used. DATE OF EXAM: 01/15/2024 11:22 AM COMPARISON: 01/13/2023 CLINICAL INDICATION: Female, 68 years old with history of C20 RECTAL CANCER; [facility], ROUTINE FOLLOW UP H X OVARIAN AND RECTAL CA Technique: CT ChestAbdPelvis w con; Multiple axial images were obtained. Two-dimensional coronal and sagittal reconstructions were obtained. Contrast used:100 mL of Isovue 300 with IV Contrast, Oral contrast used: with Oral Contrast Findings: CHEST: LUNGS/ PLEURA: No focal consolidation, pneumothorax or pleural effusion. No new or enlarging pulmonar y nodules. AIRWAY: Patent and unremarkable. HEART: Size within normal limits. MEDIASTINUM: No gross evidence of adenopathy. VASCULATURE: No aortic aneurysm. MUSCULOSKELETAL: No acute osseous abnormalities. SOFT TISSUES/LYMPH NODES: Unremarkable. LOWER NECK: No significant findings. ABDOMEN: ABDOMEN LIVER: Diffusely hypoattenuating parenchyma. GALLBLADDER AND BILE DUCTS: The gallbladder is surgically absent. PANCREAS: Unremarkable. SPLEEN: Unremarkable. ADRENAL GLANDS: Unremarkable. KIDNEYS AND URETERS: No evidence of hydronephrosis or renal calculus. The ureters are unremarkable. PELVIS BLADDER: Unremarkable REPRODUCTIVE: Surgically absent uterus and ovaries without evidence of local recurrence. ABDOMEN & PELVIS STOMACH AND BOWEL: No evidence of bowel obstruction. Surgical suture in the right colon. PERITONEUM: No evidence of pneumoperitoneum or free fluid. No soft tissue nodularity to suggest oment al caking. VASCULATURE: No evidence of aortic aneurysm. MUSCULOSKELETAL: No acute osseous abnormalities, multilevel disc degeneration changes with increased lordosis of the lumbar spine. Mild degeneration changes of the right hip with subchondral cystic shelton ges of the femoral head laterally. LYMPH NODES: No gross evidence for lymphadenopathy. SOFT TISSUE/ABDOMINAL WALL: Postsurgical changes to the anterior abdominal wall suspected soft tissue scarring. Soft tissue area measuring 3.6 x 1.0 cm is favored to represent prior fat filled ventral w all hernia given findings in 2019 CT.. IMPRESSION: 1. No evidence for recurrence or metastatic disease within the chest abdomen or pelvis. 2. Hepatic steatosis.
== END | disposition home or self-care (01) ==
LOC: RADCTMAIN 09:10
PROVIDERS: ATTEND Internal Medicine Hematology & Oncology
DX: C20 Malignant neoplasm of rectum
CPT/HCPCS: 36415; 71260; 74177; 82565; 84520

== ENCOUNTER → 2024-07-13 | Outpatient (CLI) | payer MEDICARE, BC ==
--- NOTE | 2024-07-13 10:44 | MM ---
Reason for Exam: Screening (asymptomatic). Last screening mammogram was performed 12 month(s) ago. Patient History: Menarche at age 9. First Full-Term at age 18. Left ovary removed at age 62. Right ovary removed at age 62. Hysterectomy at age 38. Postmenopausal. Ovarian cancer, age 62. Colorectal cancer, age 62. Other cancer. Patient used Hormonal Contraceptives for 8 years. 1982, Benign Excisional Biopsy on the right side. 09/04/2006, Benign Core Biopsy on the left side. 03/19/2007, Attempted Procedure on the left side. 03/19/2007, Bilateral Cancelled Left Needle Localization. Maternal aunt had breast cancer, age 60. Paternal aunt had breast cancer, age 70. Daughter had breast cancer, age 37. Mother had breast cancer, age 59. Risk Values: Lucinda 5 year model risk: 11.3%. NCI Lifetime model risk: 29.2%. Prior Study Comparison: 07/05/2021 Bilateral Screening Mammogram, [facility]. 07/07/2022 Bilateral MG 3D screening mammo w/cad, [facility]. 07/13/2023 Bilateral MG 3D screening mammo w/cad, [facility]. Tissue Density: The breasts are heterogeneously dense, which may obscure small masses. Findings: Analyzed By CAD. There is no suspicious group of microcalcifications or new suspicious mass in either breast. Overall Assessment: Benign, BI-RAD 2 Management: Screening Mammogram of both breasts in 1 year. . Patient should continue monthly self-breast exams. A clinical breast exam by your physician is recommended on an annual basis. This exam should not preclude additional follow-up of suspicious palpable abnormalities. Note on Lucinda scores and lifetime risk: 1. A Lucinda score greater than 3% is considered moderate risk. If this is the case, consider specialist referral to assess eligibility for a risk reducing agent. 2. If overall lifetime risk for the development of breast cancer is 20% or higher, the patient may qualify for future screening with alternating mammogram and breast MRI. [facility], , 07/13/2024 10:41 AM. Electronically signed and approved by: Jared Larson M.D. Radiologis
== END | disposition home or self-care (01) ==
LOC: RADMAMWWP 10:20
PROVIDERS: ATTEND Internal Medicine Hematology & Oncology
DX: Z12.31 Encounter for screening mammogram for malignant neoplasm of breast (principal); R92.333 Mammographic heterogeneous density, bilateral breasts; C56.1 Malignant neoplasm of right ovary; C20 Malignant neoplasm of rectum; M85.9 Disorder of bone density and structure, unspecified; Z71.3 Dietary counseling and surveillance; Z78.0 Asymptomatic menopausal state; Z92.0 Personal history of contraception; Z80.3 Family history of malignant neoplasm of breast
CPT/HCPCS: 77063; 77067